=== PATIENT | female | born 1945 | race Caucasian/White ===

== ENCOUNTER → 2016-11-04 | Outpatient (CLI) | payer MEDICARE, BC | END | disposition home or self-care (01) | LOC: MW.RT 09:07 | PROVIDERS: ATTEND Internal Medicine | DX: I49.1 Atrial premature depolarization (principal) ==

== ENCOUNTER → 2016-11-10 | Outpatient (CLI) | payer MEDICARE, BC | LOC: MW.CHIM 08:00 | PROVIDERS: ATTEND Internal Medicine | DX: I49.3 Ventricular premature depolarization (principal); I49.1 Atrial premature depolarization | CPT/HCPCS: G0463 ==

== ENCOUNTER → 2016-11-22 | Outpatient (CLI) | payer MEDICARE, BC | LOC: MW.CHORTHO 08:00 | PROVIDERS: ATTEND Physician Assistant | DX: M17.12 Unilateral primary osteoarthritis, left knee (principal) | CPT/HCPCS: G0463 ==

== ENCOUNTER 2017-12-14 09:00 | Day surgery (SDC) | payer MEDICARE, BC ==
[~2017-12-14 09:00] MED LIST: Sodium Chloride 0.9% 10 ML Syringe FLUSH PRN; Sodium Chloride 0.9% 2.5 ML Syringe FLUSH PRN; ceFAZolin 2 GM in Premix Bag 1 BAG IV ONE
[2017-12-14] MEDS ORDERED: Scopolamine 1.5 MG Transdermal Patch TRDERM PRN (09:29)
--- NOTE | 2017-12-14 09:31 | PCM.PREANE ---
Preanesthetic Assessment - Anesthesia/Transfusion/Family Hx Anesthesia History: Prior Anesthesia Reaction Type of Anesthesia Reaction: Excessive Nausea/Vomiting Family History of Anesthesia Reaction: No Transfusion History: No Prior Transfusion(s) - Review of Systems General: No Symptoms Pulmonary: No Symptoms Cardiovascular: No Symptoms Gastrointestinal: No Symptoms Neurological: No Symptoms Other: Reports: None - Physical Assessment NPO Status Date: 12/13/17 Height: 1.7 m Weight: 87.997 kg ASA Class: 2 Mental Status: Alert & Oriented x3 Airway Class: Mallampati = 1 Dentition: Reports: Normal Dentition Lungs: Clear to Auscultation, Normal Respiratory Effort Cardiovascular: Regular Rate, Regular Rhythm - Lab Values: Laboratory Last Values WBC 5.14 K/uL (4.0-11.0) 12/13/17 10:17 RBC 4.69 M/uL (4.30-5.90) 12/13/17 10:17 Hgb 13.7 g/dL (12.0-16.0) 12/13/17 10:17 Hct 41.6 % (36.0-46.0) 12/13/17 10:17 MCV 88.7 fL (80.0-98.0) 12/13/17 10:17 MCH 29.2 pg (27.0-32.0) 12/13/17 10:17 MCHC 32.9 g/dL (31.0-37.0) 12/13/17 10:17 RDW Std Deviation 43.3 fl (28.0-62.0) 12/13/17 10:17 RDW Coeff of Riddhi 13 % (11.0-15.0) 12/13/17 10:17 Plt Count 290 K/uL (150-400) 12/13/17 10:17 MPV 9.20 fL (7.40-12.00) 12/13/17 10:17 Nucleated RBC % 0.0 /100WBC 12/13/17 10:17 Nucleated RBCs # 0 K/uL 12/13/17 10:17 HCG, Qual NEGATIVE (NEG) 12/13/17 10:17 Blood Type O POSITIVE 12/13/17 10:17 Antibody Screen NEGATIVE 12/13/17 10:17 - Allergies Allergies/Adverse Reactions: Allergies Allergy/AdvReac Type Severity Reaction Status Date / Time No Known Allergies Allergy Verified 12/11/17 08:48 - Anesthesia Plan Pre-Op Medication Ordered: Other (scop) - Acknowledgements Anesthesia Type Planned: General Anesthesia Pt an Appropriate Candidate for the Planned Anesthesia: Yes Alternatives and Risks of Anesthesia Discussed w Pt/Guardian: Yes Pt/Guardian Understands and Agrees with Anesthesia Plan: Yes Additional Comments: PMH: anx/dep, PVCs, GERD. thyroid replacement. mild MR. PreAnesthesia Questionnaire HEENT History: Reports: Other (See Below) Other HEENT History: wears glasses Cardiovascular History: Reports: Heart Murmur Other Cardiovascular History: "leaky valve" Genitourinary History: Reports: Other (See Below) Other Genitourinary History: cystocele ACOUSTICAL ENGINEER History: Reports: Musculoskeletal History: Reports: None Neurological History: Reports: Migraines Other Neuro History: migraines in the past Psychiatric History: Reports: Anxiety Endocrine/Metabolic History: Reports: Hypothyroidism - Past Surgical History Head Surgeries/Procedures: Reports: None HEENT Surgical History: Reports: Tonsillectomy Female Surgical History: Reports: Breast Biopsy, Hysterectomy, Tubal Ligation - SUBSTANCE USE Smoking Status *Q: Never Smoker Recreational Drug Use History: No - HOME MEDS Home Medications: Home Meds Aspirin [[place] Aspirin] 81 mg PO DAILY 12/11/17 [History] Calcium Carb & Citrate/Vit D3 [Calcium + D3 ER Tablet] 1 tab PO DAILY 12/11/17 [ History] Estradiol [Estrace 0.01% Vaginal Crm] 0.5 applicful VAG ASDIRECTED 12/11/17 [ History] Glucosamine/D3/Boswellia Jody [Osteo Bi-Flex Caplet] 2 tab PO DAILY 12/11/17 [ History] LORazepam 0.5 - 1 tab PO ASDIRECTED PRN 12/11/17 [History] Levothyroxine Sodium [Synthroid] 75 mcg PO DAILY 12/11/17 [History] Metoprolol Succinate 25 mg PO BEDTIME 12/11/17 [History] Triamcinolone Acetonide [Nasacort] 1 spray NASBOTH ASDIRECTED PRN 12/11/17 [ History] traZODone HCl [Trazodone HCl] 50 mg PO BEDTIME PRN 12/11/17 [History] - CURRENT (IN HOUSE) MEDS Current Meds: Current Medications Scopolamine (Transderm-Scop) 1.5 mg TRDERM Q72H PRN PRN Reason: Nausea/Vomiting Sodium Chloride (Saline Flush) 10 ml FLUSH ASDIRECTED PRN PRN Reason: Keep Vein Open Sodium Chloride (Saline Flush) 2.5 ml FLUSH ASDIRECTED PRN PRN Reason: Keep Vein Open Discontinued Medications Cefazolin Sodium/Dextrose 2 gm (/ Premix) 50 mls @ 100 mls/hr IV ONETIME ONE Stop: 12/13/17 08:56
[2017-12-14] MEDS ORDERED: Scopolamine 1.5 MG Transdermal Patch ONE (09:56)
[2017-12-14] MEDS ORDERED: Ondansetron 4 MG/2 ML SDV ONE (10:00)
[2017-12-14] MEDS ORDERED: Lidocaine 2% 5 ML SDV ONE (10:00)
[2017-12-14] MEDS ORDERED: Midazolam 1 MG/ML 2 ML SDV ONE (10:01)
[2017-12-14] MEDS ORDERED: Propofol 200 MG/20 ML SDV ONE (10:01)
[2017-12-14] MEDS ORDERED: fentaNYL 250 MCG/5 ML SDV ONE (10:01)
[2017-12-14] MEDS ORDERED: Rocuronium 10 MG/ML 10 ML Syringe ONE (12:43)
[2017-12-14] MEDS ORDERED: ceFAZolin 1 GM Vial ONE (12:52)
[2017-12-14] MEDS ORDERED: fentaNYL 100 MCG/2 ML SDV IVPUSH PRN (13:03)
[2017-12-14] MEDS ORDERED: Fluorescein 5 ML Vial ONE (13:25)
[2017-12-14] MEDS ORDERED: Ketorolac 30 MG/ML SDV IVPUSH PRN (13:47)
[2017-12-14] MEDS ORDERED: Acetaminophen/oxyCODONE 325-5 MG Tab PO PRN ×2 (13:47)
[2017-12-14] MEDS ORDERED: Ketorolac 30 MG/ML SDV IVPUSH ONE (13:47)
[2017-12-14] MEDS ORDERED: Morphine 4 MG/ML Syringe IVPUSH PRN (13:47)
[2017-12-14] MEDS ORDERED: Ondansetron 4 MG/2 ML SDV IVPUSH PRN (13:47)
[2017-12-14] MEDS ORDERED: Promethazine 25 MG/ML SDV IM PRN (13:47)
--- NOTE | 2017-12-14 13:52 | PCM.OPNOTE ---
- General Post-Op/Procedure Note Date of Surgery/Procedure: 12/14/17 Operative Procedure(s): Anterior repair Pre Op Diagnosis: Cystocell, ANILA Post-Op Diagnosis: Same Anesthesia Technique: General ET Tube Primary Surgeon: Migue Oliveira Hot Molder: Alyssa Granados EBL in mLs: 150 Complications: None Condition: Good
--- NOTE | 2017-12-14 14:33 | PCM.POSTAN ---
POST ANESTHESIA ASSESSMENT - MENTAL STATUS Mental Status: Alert, Oriented - RESPIRATORY Respiratory Status: Respiratory Rate WNL, Airway Patent, O2 Saturation Stable - CARDIOVASCULAR CV Status: Pulse Rate WNL, Blood Pressure Stable - GASTROINTESTINAL GI Status: No Symptoms - POST OP HYDRATION Hydration Status: Adequate & Stable
--- NOTE | 2017-12-14 21:35 | OR ---
SURGEON: Migue Oliveira MD DATE OF PROCEDURE: 12/14/2017 PREOPERATIVE DIAGNOSES: Pelvic relaxation, stress urinary incontinence, mainly cystocele. POSTOPERATIVE DIAGNOSES: Pelvic relaxation, stress urinary incontinence, mainly cystocele. OPERATION PERFORMED: Cystocele repair with Carolyne plication and Solyx TVT for stress urinary incontinence and cystoscopy. MANAGER MACHINE: PAUL Cloud. ANESTHESIA: General endotracheal intubation Mr. Monte and Dr. Rico. ESTIMATED BLOOD LOSS: 125 to 250 mL. COMPLICATIONS: None. PROCEDURE IN DETAIL: The patient was brought to the OR, properly identified, and after adequate level of general anesthesia, the patient was placed in lithotomy position, prepped and draped in sterile fashion as usual. Examination under anesthesia revealed that the patient mainly have cystocele problem. Her rectocele and her enterocele are rather not factor in her problems, so we concentrating on repairing her cystocele and her TVT. The operation was started by injecting the anterior vaginal wall with copious amount of normal saline and then opened it from the vaginal wall to the urethra and dissected laterally on both side until the endopelvic fascia could be identified from both sides. Then, the defect was reduced and repaired by approximating the endopelvic fascia on both sides with 3- 0 Vicryl in imbricating fashion closing the defect. Once this was done, excess amount of vaginal mucosa trimmed anteriorly, and then the vaginal cuff was closed anteriorly with 2-0 Vicryl continuous interlocking for hemostasis. Then, attention paid to the part of the anterior vaginal wall beneath the urethra and that was infiltrated with copious amount of normal saline and then opened in midline and dissected laterally in a tunneling fashion to make a tunnel for the Solyx TVT. Once this was done, then the Solyx TVT was placed in place with due amount of tension to elevate the urethrovesical angle, and then we proceeded to close the vaginal cuff with 2-0 Vicryl continuous interlocking for hemostasis. While we were doing that, we asked Anesthesia personnel to give the patient fluorescein and then cystoscopy was done. The bladder was intact. Both ureteric orifices were seen with the dye coming from both of them. Thus, the patency of both ureters verified. Satisfied with this procedure. Vaginal packing was placed in the vagina and Acevedo catheter was placed in the bladder for drainage. The patient tolerated the procedure well and went to recovery room in stable general condition. GORGE DOMINGO /[id number]
--- NOTE | 2017-12-14 22:07 | PCM48HPAN ---
Post Anesthesia Note - EVALUATION WITHIN 48HRS OF ANESTHETIC Vital Signs in Normal Range: Yes Patient Participated in Evaluation: Yes Respiratory Function Stable: Yes Airway Patent: Yes Cardiovascular Function Stable: Yes Hydration Status Stable: Yes Pain Control Satisfactory: Yes Nausea and Vomiting Control Satisfactory: Yes Mental Status Recovered: Yes Resp Rate: 19
--- NOTE | 2017-12-15 10:00 | PCM.SURGPN ---
- General Info POD#: 1 Functional Status: Reports: Pain Controlled - Review of Systems General: Reports: No Symptoms HEENT: Reports: No Symptoms Pulmonary: Reports: No Symptoms Cardiovascular: Reports: No Symptoms Gastrointestinal: Reports: No Symptoms Genitourinary: Reports: No Symptoms Musculoskeletal: Reports: No Symptoms Skin: Reports: No Symptoms Neurological: Reports: No Symptoms Psychiatric: Reports: No Symptoms - Patient Data Vitals - Most Recent: Last Vital Signs Temp 36.9 C 12/15/17 08:00 Pulse 64 12/15/17 08:00 Resp 16 12/15/17 08:00 BP 110/68 12/15/17 08:00 Pulse Ox 93 L 12/15/17 08:00 Weight - Most Recent: 87.9 kg I&O - Last 24 Hours: Intake & Output 12/14/17 12/15/17 12/15/17 22:59 06:59 14:59 Intake Total 100 1272 Output Total 150 2550 Balance -50 -1278 Lab Results Last 24 Hrs: Laboratory Results - last 24 hr 12/15/17 12/15/17 Range/Units 05:30 05:30 WBC 8.51 (4.0-11.0) K/uL RBC 4.14 L (4.30-5.90) M/uL Hgb 11.9 L (12.0-16.0) g/dL Hct 36.8 (36.0-46.0) % MCV 88.9 (80.0-98.0) fL MCH 28.7 (27.0-32.0) pg MCHC 32.3 (31.0-37.0) g/dL RDW Std Deviation 42.8 (28.0-62.0) fl RDW Coeff of Riddhi 13 (11.0-15.0) % Plt Count 228 (150-400) K/uL MPV 9.00 (7.40-12.00) fL Neut % (Auto) 75.2 (48.0-80.0) % Lymph % (Auto) 17.3 (16.0-40.0) % [place] % (Auto) 6.7 (0.0-15.0) % Eos % (Auto) 0.6 (0.0-7.0) % Baso % (Auto) 0.2 (0.0-1.5) % Neut # (Auto) 6.4 H (1.4-5.7) K/uL Lymph # (Auto) 1.5 (0.6-2.4) K/uL [place] # (Auto) 0.6 (0.0-0.8) K/uL Eos # (Auto) 0.1 (0.0-0.7) K/uL Baso # (Auto) 0.0 (0.0-0.1) K/uL Nucleated RBC % 0.0 /100WBC Nucleated RBCs # 0 K/uL Sodium 143 (136-145) mmol/L Potassium 4.2 (3.5-5.1) mmol/L Chloride 110 H (98-107) mmol/L Carbon Dioxide 26.6 (21.0-32.0) mmol/L BUN 15 (7.0-18.0) mg/dL Creatinine 1.0 (0.6-1.0) mg/dL Est Cr Clr Drug Dosing 56.61 mL/min Estimated GFR (MDRD) 54.8 ml/min Glucose 109 H (74-106) mg/dL Calcium 8.5 (8.5-10.1) mg/dL Med Orders - Current: Current Medications Fentanyl (Sublimaze) 50 mcg IVPUSH .Q5MIN PRN PRN Reason: Pain Ketorolac Tromethamine (Toradol) 30 mg IVPUSH Q6H PRN PRN Reason: Pain (severe 7-10) Stop: 12/19/17 13:48 Last Admin: 12/14/17 14:09 Dose: 30 mg Morphine Sulfate (Morphine) 4 mg IVPUSH Q2H PRN PRN Reason: Pain (severe 7-10) Ondansetron HCl (Zofran) 4 mg IVPUSH Q6H PRN PRN Reason: Nausea/Vomiting Oxycodone/Acetaminophen (Percocet 325-5 Mg) 1 tab PO Q4H PRN PRN Reason: Pain (moderate 4-6) Last Admin: 12/15/17 03:30 Dose: 1 tab Oxycodone/Acetaminophen (Percocet 325-5 Mg) 2 tab PO Q4H PRN PRN Reason: Pain (moderate 4-6) Promethazine HCl (Phenergan) 25 mg IM Q6H PRN PRN Reason: Nausea/Vomiting Scopolamine (Transderm-Scop) 1.5 mg TRDERM Q72H PRN PRN Reason: Nausea/Vomiting Last Admin: 12/14/17 10:04 Dose: 1.5 mg Sodium Chloride (Saline Flush) 10 ml FLUSH ASDIRECTED PRN PRN Reason: Keep Vein Open Sodium Chloride (Saline Flush) 2.5 ml FLUSH ASDIRECTED PRN PRN Reason: Keep Vein Open Discontinued Medications Cefazolin Sodium (Ancef) Confirm Administered Dose 2 gm .ROUTE .STK-MED ONE Stop: 12/14/17 12:53 Fentanyl (Sublimaze) Confirm Administered Dose 250 mcg .ROUTE .STK-MED ONE Stop: 12/14/17 10:02 Fluorescein Sodium (Ak-Fluor) Confirm Administered Dose 5 ml .ROUTE .STK-MED ONE Stop: 12/14/17 13:26 Cefazolin Sodium/Dextrose 2 gm (/ Premix) 50 mls @ 100 mls/hr IV ONETIME ONE Stop: 12/13/17 08:56 Last Admin: 12/14/17 18:43 Dose: Not Given Ketorolac Tromethamine (Toradol) 30 mg IVPUSH ONETIME ONE Stop: 12/14/17 13:48 Last Admin: 12/14/17 18:43 Dose: Not Given Lidocaine (Xylocaine-Mpf 2%) Confirm Administered Dose 5 ml .ROUTE .STK-MED ONE Stop: 12/14/17 10:01 Midazolam HCl (Versed 1 Mg/Ml) Confirm Administered Dose 2 mg .ROUTE .STK-MED ONE Stop: 12/14/17 10:02 Ondansetron HCl (Zofran) Confirm Administered Dose 4 mg .ROUTE .STK-MED ONE Stop: 12/14/17 10:01 Propofol (Diprivan 20 Ml) Confirm Administered Dose 200 mg .ROUTE .STK-MED ONE Stop: 12/14/17 10:02 Rocuronium [place] (Zemuron) Confirm Administered Dose 100 mg .ROUTE .STK-MED ONE Stop: 12/14/17 12:44 Scopolamine (Transderm-Scop) Confirm Administered Dose 1.5 mg .ROUTE .STK-MED ONE Stop: 12/14/17 09:57 - Exam Wound/Incisions: Healing Well General: Alert, Oriented HEENT: Pupils Equal Neck: Supple Lungs: Clear to Auscultation, Normal Respiratory Effort Cardiovascular: Regular Rate, Regular Rhythm GI/Abdominal Exam: Normal Bowel Sounds, Soft, Non-Tender, No Organomegaly, No Distention, No Abnormal Bruit, No Mass, Pelvis Stable Extremities: Normal Inspection, Normal Range of Motion, Non-Tender, No Pedal Edema, Normal Capillary Refill Skin: Warm, Dry, Intact Neurological: No New Focal Deficit Psy/Mental Status: Alert, Normal Affect, Normal Mood - Problem List Review Problem List Initiated/Reviewed/Updated: Yes - My Orders Last 24 Hours: Active Orders 24 hr Category Date Time Status Patient Status [ADT] Routine ADT 12/14/17 13:48 Active Notify Provider Vital Signs [RC] ASDIRECTED Care 12/14/17 13:48 Active Oxygen Therapy [RC] ASDIRECTED Care 12/14/17 13:48 Active RT Incentive Spirometry [RC] Q2HWA Care 12/14/17 13:48 Active Up With Assistance [RC] PER UNIT ROUTINE Care 12/14/17 13:48 Active Up ad [place] [RC] PER UNIT ROUTINE Care 12/14/17 13:48 Active Urinary Catheter Removal [RC] Per Unit Routine Care 12/14/17 13:48 Active Vital Signs [RC] Q4H Care 12/14/17 13:48 Active Regular Diet [DIET] Diet 12/14/17 Dinner Active Acetaminophen/oxyCODONE [Percocet 325-5 MG] Med 12/14/17 13:47 Active 1 tab PO Q4H PRN Acetaminophen/oxyCODONE [Percocet 325-5 MG] Med 12/14/17 13:47 Active 2 tab PO Q4H PRN Ketorolac [Toradol] Med 12/14/17 13:47 Active 30 mg IVPUSH Q6H PRN Morphine Med 12/14/17 13:47 Active 4 mg IVPUSH Q2H PRN Ondansetron [Zofran] Med 12/14/17 13:47 Active 4 mg IVPUSH Q6H PRN Promethazine [Phenergan] Med 12/14/17 13:47 Active 25 mg IM Q6H PRN Scopolamine [Transderm-Scop] Med 12/14/17 09:29 Active 1.5 mg TRDERM Q72H PRN fentaNYL [Sublimaze] Med 12/14/17 13:03 Active 50 mcg IVPUSH .Q5MIN PRN Peripheral IV Discontinue [OM.PC] Routine Oth 12/14/17 13:48 Ordered Sequential Compression Device [OM.PC] Per Unit Routine Oth 12/14/17 13:48 Ordered Resuscitation Status Routine Resus Stat 12/14/17 13:47 Ordered Medication Orders Fentanyl (Sublimaze) 50 mcg IVPUSH .Q5MIN PRN PRN Reason: Pain Ketorolac Tromethamine (Toradol) 30 mg IVPUSH Q6H PRN PRN Reason: Pain (severe 7-10) Stop: 12/19/17 13:48 Last Admin: 12/14/17 14:09 Dose: 30 mg Morphine Sulfate (Morphine) 4 mg IVPUSH Q2H PRN PRN Reason: Pain (severe 7-10) Ondansetron HCl (Zofran) 4 mg IVPUSH Q6H PRN PRN Reason: Nausea/Vomiting Oxycodone/Acetaminophen (Percocet 325-5 Mg) 1 tab PO Q4H PRN PRN Reason: Pain (moderate 4-6) Last Admin: 12/15/17 03:30 Dose: 1 tab Oxycodone/Acetaminophen (Percocet 325-5 Mg) 2 tab PO Q4H PRN PRN Reason: Pain (moderate 4-6) Promethazine HCl (Phenergan) 25 mg IM Q6H PRN PRN Reason: Nausea/Vomiting Scopolamine (Transderm-Scop) 1.5 mg TRDERM Q72H PRN PRN Reason: Nausea/Vomiting Last Admin: 12/14/17 10:04 Dose: 1.5 mg Sodium Chloride (Saline Flush) 10 ml FLUSH ASDIRECTED PRN PRN Reason: Keep Vein Open Sodium Chloride (Saline Flush) 2.5 ml FLUSH ASDIRECTED PRN PRN Reason: Keep Vein Open - Assessment Assessment (Free Text/Narrative):: Doing well. vaginal pack and foly catheter removed. - Plan Plan (Free Text/Narrative):: Send home today.
== END 2017-12-15 13:18 | disposition home or self-care (01) ==
LOC: MW.SDS 09:00 → MW.MS 13:48 → MW.SDS 12-15 13:18
PROVIDERS: ATTEND Obstetrics & Gynecology
DX: N39.3 Stress incontinence (female) (male) (principal); N81.10 Cystocele, unspecified; F41.9 Anxiety disorder, unspecified; G43.909 Migraine, unspecified, not intractable, without status migrainosus; E03.9 Hypothyroidism, unspecified; Z79.82 Long term (current) use of aspirin; Z79.899 Other long term (current) drug therapy; Z90.89 Acquired absence of other organs; Z90.710 Acquired absence of both cervix and uterus; Z98.51 Tubal ligation status
CPT/HCPCS: 36415; 57240; 57288; 80048; 84703; 85025; 85027; 86850; 86900; 86901; A9270; J0690; J1885; J2250; J2405; J3010; J2704

== ENCOUNTER 2020-12-31 14:19 | Inpatient (IN) | payer MEDICARE, BC ==
[2020-12-31] MEDS ORDERED: Sodium Chloride 0.9% 1,000 ML IV ONE (14:50)
--- NOTE | 2020-12-31 15:36 | PCM.EKG ---
#1 Interpretation EKG Date: 12/31/20 Time: 15:28 Rhythm: NSR Rate (Beats/Min): 79 [place]: Normal P-Wave: Present QRS: Normal ST-T: Normal QT: Normal Comparison: No Change (10/25/16) EKG Interpretation Comments: SinuS Rhythm
--- NOTE | 2020-12-31 15:40 | CR ---
Indication: Shortness of breath Technique: Chest 1 view Comparison: December 28, 2020 Findings/Impression: Stable cardiomediastinal silhouette. New, mild pulmonary venous congestion with some new patchy infiltrates in the right mid to lower lung field, concerning for atelectasis or infection. No pneumothorax or effusion. Mild elevation of the left hemidiaphragm. Mild dextroscoliosis of the spine with age-related degenerative changes. Dictated by Sridevi Zarate MD @ 12/31/2020 3:39:[address] Sridevi Zarate @ Dec 31 2020 3:39PM
[2020-12-31 15:47] LABS: BLOOD UREA NITROGEN,BUN 16 mg/dL (7.0-18.0); CARBON DIOXIDE,CO2 26.1 mmol/L (21.0-32.0); CHLORIDE,CL 96 mmol/L (98-107); GLUCOSE RANDOM 119 mg/dL (74-106); LIPASE 97 U/L (73-393); POTASSIUM,K 3.8 mmol/L (3.5-5.1); SODIUM,NA 133 mmol/L (136-145)
[2020-12-31 16:02] LABS: CORONAVIRUS COVID-19 NAA POSITIVE (NEGATIVE); INFLUENZA A NAA NEGATIVE (NEGATIVE); INFLUENZA B NAA NEGATIVE (NEGATIVE)
[2020-12-31] MEDS ORDERED: Dexamethasone 10 MG/ML SDV IVPUSH ONE (17:00)
[2020-12-31] MEDS ORDERED: Acetaminophen 325 MG Tab PO PRN (17:37)
[2020-12-31] MEDS ORDERED: REMDESIVIR 200 MG in Sodium Chloride 0.9% 250 ML IV ONE (17:51)
--- NOTE | 2020-12-31 18:11 | EDM.PDOC ---
ED HPI GENERAL MEDICAL PROBLEM - General Chief Complaint: General Stated Complaint: DOESNNT FEEL WELL Time Seen by Provider: 12/31/20 14:20 Source of Information: Reports: Patient History Limitations: Reports: No Limitations - History of Present Illness INITIAL COMMENTS - FREE TEXT/NARRATIVE: HISTORY AND PHYSICAL: History of present illness: Patient is a 75-year-old female, with a history of hyper lipidemia and hypothyroidism, who presents emergency room today with concern of shortness of breath and feeling tired and rundown. Patient states she is also had a recent "cold "and has had a cough, runny/stuffy nose, and generalized body aches. Patient states that she is also had fevers off and on around 101 at home. Patient states that everyone in the family has "had a cold ". Patient states that she has not received the COVID-19 vaccination. Patient states that she has had symptoms for 1 week and she saw her primary care provider 3 days ago who did a chest x-ray and some routine lab work but states that she did not have a COVID-19 test at that time. Patient states that she went to see them today in the clinic and was instructed to come to the emergency room because her oxygen was low. Patient states that her oxygen was 86% today in the clinic. Patient denies any other symptoms or concerns. Patient denies chest pain. Denies headache, neck stiff ness, change in vision, syncope, or near syncope. Denies nausea, vomiting, abdominal pain, diarrhea, constipation, or dysuria. Has not noted any blood in urine or stool. Patient has been eating and drinking appropriately. Review of systems: As per history of present illness and below otherwise all systems reviewed and negative. Past medical history: As per history of present illness and as reviewed below otherwise noncontributory. Surgical history: As per history of present illness and as reviewed below otherwise noncontributory. Social history: See social history for further information Family history: As per history of present illness and as reviewed below otherwise noncontributory. Physical exam: General: Patient is alert, oriented, and in no acute distress. Patient sitting comfortably on exam table. O2 90% on RA. Placed on 2L NC and 94%, otherwise vitals stable and reviewed by me. HEENT: Atraumatic, normocephalic, pupils equal and reactive bilaterally, negative for conjunctival pallor or scleral icterus, mucous membranes moist, TMs normal bilaterally, throat clear, neck supple, nontender, trachea midline. No drooling or trismus noted. No meningeal signs. No hot potato voice noted. Lungs: Patient speaking clearly without breathlessness, no wheezing or stridor, no accessory muscle use or respiratory distress. Auscultation deferred due to current COV-ID 19 outbreak. Heart: Auscultation deferred due to current COV-ID 19 outbreak. Abdomen: Soft, nondistended, nontender. Negative for masses or hepatosplenomegaly. Negative for costovertebral tenderness. Pelvis: Stable nontender. Genitourinary: Deferred. Rectal: Deferred. Skin: Intact, warm, dry. No lesions or rashes noted. Extremities: Atraumatic, negative for cords or calf pain. Neurovascular unremarkable. Neuro: Awake, alert, oriented. Cranial nerves II through XII unremarkable. Cerebellum unremarkable. Motor and sensory unremarkable throughout. Exam nonfocal. Notes: Patient is a 75-year-old female with a health history of hyperlipidemia and hypothyroidism, who presents emergency room today secondary to worsening shortness of breath with viral illness symptoms over the past several days with hypoxia as determined by the clinic and sent to the emergency room for further evaluation. Upon arrival to the ED, patient's oxygen on room air is 90% and otherwise vitally stable. Patient is breathing comfortably without breathlessness, and no sign of respiratory distress. Will perform cardiac evaluation. Patient was placed on 2 L nasal cannula upon arrival to the ED and satting approximately 94% and breathing comfortably. While waiting for diagnostic completion, patient does get up to use the restroom. During this event, she does drop down to 80% on 2 L. When patient does sit back down, she remains consistently 85 to 86% on 2 L nasal cannula. Patient was increased to 4 L nasal cannula and now 93%. She remains comfortable despite this drop in oxygenation and breathing without difficulty. See Dr. Bradford's dictation for specific EKG interpretation. However, no STEMI or acute signs of ischemia with normal sinus rhythm. CBC mild derangements unremarkable. CMP shows a mildly low sodium at 133, chloride 96, mildly elevated glucose at 1-18, otherwise unremarkable. Troponin is negative. Patient unable to leave a urine sample at this time. Covid is positive. Chest x-ray shows stable cardiomediastinal silhouette. New, mild pulmonary venous congestion with some new patchy infiltrates in the right mid to lower lung field. Concerning for atelectasis or infection. No pneumothorax or effus ion. Mild elevation of the left hemidiaphragm. Mild dextroscoliosis of the spine with age-related degenerative changes. Upon reevaluation of patient, she remains comfortable on 4 L nasal cannula sa tting approximately 93 to 94% and otherwise breathing comfortably. She remains vitally stable. I did call and speak to the hospitalist on-call, Dr. Angulo, and thoroughly discussed patient's case. Will admit to inpatient on telemetry Voices understanding and is agreeable to plan of care. Denies any further questions or concerns at this time. Diagnostics: EKG, CBC, CMP, UA, chest x-ray, troponin, Covid/influenza Therapeutics: Oxygen, Decadron, NS Impression: COVID-19 infection with hypoxia Plan: Admit to observation to Dr. Angulo on telemetry Definitive disposition and diagnosis as appropriate pending reevaluation and review of above. - Related Data Allergies Allergy/AdvReac Type Severity Reaction Status Date / Time No Known Allergies Allergy Verified 12/31/20 18:19 Home Meds: Home Meds Aspirin [[place] Aspirin EC] 81 mg PO DAILY 12/11/17 [History] LORazepam 0.5 - 1 tab PO ASDIRECTED PRN 12/11/17 [History] Metoprolol Succinate 25 mg PO BEDTIME 12/11/17 [History] Cholecalciferol (Vitamin D3) [Vitamin D3] 2,000 unit PO DAILY 12/31/20 [History] Levothyroxine [Synthroid] 100 mcg PO ACBREAKFAST 12/31/20 [History] Lysine 1,000 mg PO DAILY 12/31/20 [History] Magnesium 250 mg PO DAILY 12/31/20 [History] Zinc 50 mg PO DAILY 12/31/20 [History] Past Medical History HEENT History: Reports: Other (See Below) Other HEENT History: wears glasses Cardiovascular History: Reports: Heart Murmur, Hypertension Other Cardiovascular History: "leaky valve" Genitourinary History: Reports: Other (See Below) Other Genitourinary History: cystocele [employer] History: Reports: Musculoskeletal History: Reports: None Neurological History: Reports: Migraines Other Neuro History: migraines in the past Psychiatric History: Reports: Anxiety Endocrine/Metabolic History: Reports: Hypothyroidism - Past Surgical History Head Surgeries/Procedures: Reports: None HEENT Surgical History: Reports: Tonsillectomy Female Surgical History: Reports: Breast Biopsy, Hysterectomy, Tubal Ligation Social & Family History - Family History Family Medical History: No Pertinent Family History - Tobacco Use Tobacco Use Status *Q: Never Tobacco User - Caffeine Use Caffeine Use: Reports: Coffee - Recreational Drug Use Recreational Drug Use: No ED ROS GENERAL - Review of Systems Review Of Systems: Comprehensive ROS is negative, except as noted in HPI. ED EXAM, GENERAL - Physical Exam Exam: See Below (see dictation) Course - Vital Signs Last Recorded V/S: Last Vital Signs Temp 96.9 F 01/02/21 11:51 Pulse 76 01/02/21 11:51 Resp 18 01/02/21 11:51 BP 102/56 L 01/02/21 11:51 Pulse Ox 94 L 01/02/21 11:51 - Orders/Labs/Meds Orders: Medication Orders Acetaminophen (Acetaminophen 325 Mg Tab) 650 mg PO Q4H PRN PRN Reason: Pain (Mild 1-3)/fever Albuterol/Ipratropium (Albuterol/Ipratropium 4 Gm Inhalation [place]) 0 gm INH Q4H PRN PRN Reason: Dyspnea Aspirin (Aspirin 81 Mg Tab.Ec) 81 mg PO DAILY [facility] Last Admin: 01/02/21 08:56 Dose: 81 mg Documented by: Admin: 01/01/21 08:05 Dose: 81 mg Documented by: ASHLEY Cholecalciferol (Cholecalciferol (Vitamin D3) 25 Mcg Tab) 50 mcg PO DAILY [facility] Last Admin: 01/02/21 08:56 Dose: 50 mcg Documented by: Admin: 01/01/21 08:04 Dose: 50 mcg Documented by: ASHLEY Dexamethasone (Dexamethasone 4 Mg Tab) 6 mg PO DAILY [facility] Last Admin: 01/02/21 08:56 Dose: 6 mg Documented by: Admin: 01/01/21 08:04 Dose: 6 mg Documented by: ASHLEY Guaifenesin (Guaifenesin 100 Mg/5 Ml Soln 5 Ml Ud Cup) 200 mg PO Q4H PRN PRN Reason: Cough Last Admin: 01/01/21 04:18 Dose: 200 mg Documented by: DARIA Heparin Sodium (Porcine) (Heparin Sodium 5,000 Units/Ml Vial) 5,000 units SUBCUT Q8H [facility] Last Admin: 01/02/21 12:03 Dose: 5,000 units Documented by: Admin: 01/02/21 04:20 Dose: 5,000 units Documented by: Admin: 01/01/21 19:41 Dose: 5,000 units Documented by: Admin: 01/01/21 12:30 Dose: 5,000 units Documented by: Admin: 01/01/21 04:16 Dose: 5,000 units Documented by: Admin: 12/31/20 20:25 Dose: 5,000 units Documented by: DARIA Levofloxacin/Dextrose 750 mg/ (Premix) 150 mls @ 100 mls/hr IV Q24H [facility] Last Admin: 01/01/21 20:23 Dose: 100 mls/hr Documented by: Infusion: 12/31/20 21:58 Dose: 100 mls/hr Documented by: Admin: 12/31/20 20:28 Dose: 100 mls/hr Documented by: DARIA Remdesivir 100 mg/ Sodium (Chloride) 100 mls @ 100 mls/hr IV Q24H [facility] Stop: 01/04/21 19:59 Last Admin: 01/01/21 18:53 Dose: 100 mls/hr Documented by: ASHLEY Levothyroxine Sodium (Levothyroxine 100 Mcg Tab) 100 mcg PO ACBREAKFAST [facility] Last Admin: 01/02/21 06:38 Dose: 100 mcg Documented by: Admin: 01/01/21 06:32 Dose: 100 mcg Documented by: DARIA Lorazepam (Lorazepam 0.5 Mg Tab) 1 mg PO BEDTIME PRN PRN Reason: Anxiety Metoprolol Succinate (Metoprolol Succinate 25 Mg Tab.Er) 25 mg PO BEDTIME [facility] Last Admin: 01/01/21 20:24 Dose: 25 mg Documented by: Admin: 12/31/20 21:39 Dose: 25 mg Documented by: DARIA Ondansetron HCl (Ondansetron 4 Mg Tab.Dis) 4 mg PO Q4H PRN PRN Reason: nausea, able to take PO Zinc [Zinc] 50 Mg (Tablet) 1 each PO DAILY [facility] Last Admin: 01/02/21 08:57 Dose: Not Given Documented by: Admin: 01/01/21 12:11 Dose: Not Given Documented by: ASHLEY Labs: Laboratory Tests 12/31/20 12/31/20 12/31/20 Range/Units 15:08 15:08 15:20 WBC 8.35 (4.0-11.0) K/uL RBC 4.62 (4.30-5.90) M/uL Hgb 13.6 (12.0-16.0) g/dL Hct 40.5 (36.0-46.0) % MCV 87.7 (80.0-98.0) fL MCH 29.4 (27.0-32.0) pg MCHC 33.6 (31.0-37.0) g/dL RDW Std Deviation 44.7 (28.0-62.0) fl RDW Coeff of Riddhi 14 (11.0-15.0) % Plt Count 255 (150-400) K/uL MPV 9.00 (7.40-12.00) fL Neut % (Auto) 83.4 H (48.0-80.0) % Lymph % (Auto) 11.0 L (16.0-40.0) % [place] % (Auto) 5.5 (0.0-15.0) % Eos % (Auto) 0.0 (0.0-7.0) % Baso % (Auto) 0.1 (0.0-1.5) % Neut # (Auto) 7.0 H (1.4-5.7) K/uL Lymph # (Auto) 0.9 (0.6-2.4) K/uL Davison # (Auto) 0.5 (0.0-0.8) K/uL Eos # (Auto) 0.0 (0.0-0.7) K/uL Baso # (Auto) 0.0 (0.0-0.1) K/uL Nucleated RBC % 0.0 /100WBC Nucleated RBCs # 0 K/uL Sodium 133 L (136-145) mmol/L Potassium 3.8 (3.5-5.1) mmol/L Chloride 96 L (98-107) mmol/L Carbon Dioxide 26.1 (21.0-32.0) mmol/L BUN 16 (7.0-18.0) mg/dL Creatinine 1.0 (0.6-1.0) mg/dL Est Cr Clr Drug Dosing 54.18 mL/min Estimated GFR (MDRD) 54.3 ml/min Glucose 119 H (74-106) mg/dL Calcium 8.5 (8.5-10.1) mg/dL Total Bilirubin 0.5 (0.2-1.0) mg/dL AST 35 (15-37) IU/L ALT 22 (14-63) IU/L Alkaline Phosphatase 85 (46-116) U/L Troponin I < 0.050 (0.000-0.056) ng/mL Total Protein 8.2 (6.4-8.2) g/dL Albumin 3.4 (3.4-5.0) g/dL Globulin 4.8 H (2.6-4.0) g/dL Albumin/Globulin Ratio 0.7 L (0.9-1.6) Lipase 97 (73-393) U/L Influenza Type A RNA NEGATIVE (NEGATIVE) Influenza Type B RNA NEGATIVE (NEGATIVE) SARS-CoV-2 RNA (FREYA) POSITIVE H (NEGATIVE) Meds: Medications Generic Name Dose Route Start Last Admin Trade Name Freq PRN Reason Stop Dose Admin Acetaminophen 650 mg 12/31/20 17:37 Acetaminophen 325 Mg Tab PO Q4H PRN Pain (Mild 1-3)/fever Albuterol/Ipratropium 0 gm 12/31/20 20:02 Albuterol/Ipratropium 4 Gm Inhalation [place] INH Q4H PRN Dyspnea Aspirin 81 mg 01/01/21 09:00 01/02/21 08:56 Aspirin 81 Mg Tab.Ec PO 81 mg DAILY [facility] Administration Cholecalciferol 50 mcg 01/01/21 09:00 01/02/21 08:56 Cholecalciferol (Vitamin D3) 25 Mcg Tab PO 50 mcg DAILY [facility] Administration Dexamethasone 6 mg 01/01/21 09:00 01/02/21 08:56 Dexamethasone 4 Mg Tab PO 6 mg DAILY [facility] Administration Guaifenesin 200 mg 12/31/20 21:43 01/01/21 04:18 Guaifenesin 100 Mg/5 Ml Soln 5 Ml Ud Cup PO 200 mg Q4H PRN Administration Cough Heparin Sodium (Porcine) 5,000 units 12/31/20 20:00 01/02/21 12:03 Heparin Sodium 5,000 Units/Ml Vial SUBCUT 5,000 units Q8H [facility] Administration Levofloxacin/Dextrose 750 mg/ 150 mls @ 100 mls/hr 12/31/20 20:00 01/01/21 20:23 Premix IV 100 mls/hr Q24H [facility] Administration Remdesivir 100 mg/ Sodium 100 mls @ 100 mls/hr 01/01/21 19:00 01/01/21 18:53 Chloride IV 01/04/21 19:59 100 mls/hr Q24H [facility] Administration Levothyroxine Sodium 100 mcg 01/01/21 07:30 01/02/21 06:38 Levothyroxine 100 Mcg Tab PO 100 mcg ACBREAKFAST [facility] Administration Lorazepam 1 mg 01/02/21 01:35 Lorazepam 0.5 Mg Tab PO BEDTIME PRN Anxiety Metoprolol Succinate 25 mg 12/31/20 21:30 01/01/21 20:24 Metoprolol Succinate 25 Mg Tab.Er PO 25 mg BEDTIME [facility] Administration Ondansetron HCl 4 mg 12/31/20 18:42 Ondansetron 4 Mg Tab.Dis PO Q4H PRN nausea, able to take PO Zinc [Zinc] 50 Mg 1 each 01/01/21 09:00 01/02/21 08:57 Tablet PO Not Given DAILY [facility] Discontinued Medications Generic Name Dose Route Start Last Admin Trade Name Freq PRN Reason Stop Dose Admin Dexamethasone 6 mg 12/31/20 17:00 12/31/20 17:22 Dexamethasone 10 Mg/Ml Sdv IVPUSH 12/31/20 17:01 6 mg ONETIME ONE Administration Sodium Chloride 1,000 mls @ 999 mls/hr 12/31/20 14:50 12/31/20 14:59 Normal Saline IV 12/31/20 15:50 999 mls/hr BOLUS ONE Administration Remdesivir 200 mg/ Sodium 250 mls @ 250 mls/hr 12/31/20 17:51 12/31/20 19:23 Chloride IV 12/31/20 17:52 250 mls/hr ONETIME ONE Administration Remdesivir 100 mg/ Sodium 100 mls @ 100 mls/hr 01/01/21 09:00 Chloride IV 01/04/21 09:59 Q24H [facility] Departure - Departure Time of Disposition: 18:09 Disposition: Admitted As Inpatient 68 Clinical Impression: COVID-19 virus infection, Hypoxia - Discharge Information Sepsis Event Note (ED) - Evaluation Sepsis Screening Result: No Definite Risk
[2020-12-31] MEDS ORDERED: Ondansetron 4 MG Tab.DIS PO PRN (18:42)
--- NOTE | 2020-12-31 18:48 | PCM.HP.2 ---
<Rohith Marina - Last Filed: 12/31/20 20:07> H&P History of Present Illness - General Date of Service: 12/31/20 Admit Problem/Dx: Admission Diagnosis/Problem Admission Diagnosis/Problem Hypoxia Source of Information: Patient History Limitations: Reports: No Limitations - History of Present Illness Initial Comments - Free Text/Narative: Patient is a 75-year-old female with significant past medical history of hypothyroidism,Irregular heart rate with premature atrial contractions on metoprolol, anxiety: Presenting today with worsening shortness of breath, fatigue, exertional dyspnea x6 days. Patient endorses symptoms began 6 days pr ior and had gone to urgent care here at [facility] on December 28 complaining of fatigue and nonproductive cough. Chest x-ray at the time however did not show any acute findings and patient was discharged in stable condition. patient however returned back on December 31; complaining of worsening fatigue w. fever, T-max of 101 and since oxygen saturation was noted to be at 88% patient was immediately sent to the ER. ED course: Covid positive Chest x-ray: New mild pulmonary venous congestion with some new patchy infiltrates in the right mid to lower lung lung field concerning for atelectasis or infection no pneumothorax or effusion noted. EKG: Sinus rhythm Patient was given initial dose of dexamethasone 6 mg, remdesivir 200 and given a 1 L NS bolus. Oxygen requirement had gone up slightly however the rest of her vitals were unremarkable; O2 saturation 90% on 4 L. Bedside: Endorses similar story as above. States that fatigue has been worsening for 6 days and that appetite has been waning as well. Mentions fever has improved but was having shortness of breath with and without exertion. Patient otherwise denies any chest pain, dizziness, palpitations - Related Data Allergies/Adverse Reactions: Allergies Allergy/AdvReac Type Severity Reaction Status Date / Time No Known Allergies Allergy Verified 12/31/20 18:19 Home Medications: Home Meds Aspirin [[place] Aspirin EC] 81 mg PO DAILY 12/11/17 [History] LORazepam 0.5 - 1 tab PO ASDIRECTED PRN 12/11/17 [History] Metoprolol Succinate 25 mg PO BEDTIME 12/11/17 [History] Cholecalciferol (Vitamin D3) [Vitamin D3] 2,000 unit PO DAILY 12/31/20 [History] Levothyroxine [Synthroid] 100 mcg PO ACBREAKFAST 12/31/20 [History] Lysine 1,000 mg PO DAILY 12/31/20 [History] Magnesium 250 mg PO DAILY 12/31/20 [History] Zinc 50 mg PO DAILY 12/31/20 [History] Past Medical History HEENT History: Reports: Other (See Below) Other HEENT History: wears glasses Cardiovascular History: Reports: Heart Murmur, Hypertension Other Cardiovascular History: "leaky valve" Genitourinary History: Reports: Other (See Below) Other Genitourinary History: cystocele 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: Musculoskeletal History: Reports: None Neurological History: Reports: Migraines Other Neuro History: migraines in the past Psychiatric History: Reports: Anxiety Endocrine/Metabolic History: Reports: Hypothyroidism - Past Surgical History Head Surgeries/Procedures: Reports: None HEENT Surgical History: Reports: Tonsillectomy Female Surgical History: Reports: Breast Biopsy, Hysterectomy, Tubal Ligation Social & Family History - Family History Family Medical History: No Pertinent Family History - Tobacco Use Tobacco Use Status *Q: Never Tobacco User Second Hand Smoke Exposure: No - Caffeine Use Caffeine Use: Reports: Coffee Caffeine Use Comment: a little bit - Recreational Drug Use Recreational Drug Use: No H&P Review of Systems - Review of Systems: Review Of Systems: See Below General: Reports: Weakness, Fatigue. Denies: Fever HEENT: Reports: No Symptoms Pulmonary: Reports: Cough. Denies: Shortness of Breath, Pleuritic Chest Pain Cardiovascular: Reports: Dyspnea on Exertion. Denies: Chest Pain, Palpitations Gastrointestinal: Reports: No Symptoms. Denies: Constipation, Diarrhea, Decreased Appetite, Nausea Genitourinary: Reports: No Symptoms Musculoskeletal: Reports: No Symptoms Psychiatric: Reports: No Symptoms Neurological: Reports: No Symptoms Hematologic/Lymphatic: Reports: No Symptoms Exam - Exam Exam: See Below - Vital Signs Vital Signs: Last Vital Signs Temp 98.4 F 12/31/20 18:00 Pulse 86 12/31/20 18:00 Resp 18 12/31/20 18:00 BP 128/69 12/31/20 18:00 Pulse Ox 90 L 12/31/20 18:27 Weight: 82.146 kg - Exam Quality Assessment: Supplemental Oxygen General: Alert, Oriented, Cooperative HEENT: Conjunctiva Clear, EOMI, Mucosa Moist & Kulm Neck: Supple, Trachea Midline Lungs: Other (Coarse BS noted diffusely; no wheezing and or crackles noted ) Cardiovascular: Regular Rate, Regular Rhythm GI/Abdominal Exam: Soft, Non-Tender Extremities: Normal Inspection Neuro Extensive - Mental Status: Alert, Oriented x3 Psychiatric: Alert, Normal Mood - Patient Data Lab Results Last 24 hrs: Laboratory Results - last 24 hr 12/31/20 12/31/20 12/31/20 Range/Units 03:20 15:08 15:08 WBC 8.35 (4.0-11.0) K/uL RBC 4.62 (4.30-5.90) M/uL Hgb 13.6 (12.0-16.0) g/dL Hct 40.5 (36.0-46.0) % MCV 87.7 (80.0-98.0) fL MCH 29.4 (27.0-32.0) pg MCHC 33.6 (31.0-37.0) g/dL RDW Std Deviation 44.7 (28.0-62.0) fl RDW Coeff of Riddhi 14 (11.0-15.0) % Plt Count 255 (150-400) K/uL MPV 9.00 (7.40-12.00) fL Neut % (Auto) 83.4 H (48.0-80.0) % Lymph % (Auto) 11.0 L (16.0-40.0) % [place] % (Auto) 5.5 (0.0-15.0) % Eos % (Auto) 0.0 (0.0-7.0) % Baso % (Auto) 0.1 (0.0-1.5) % Neut # (Auto) 7.0 H (1.4-5.7) K/uL Lymph # (Auto) 0.9 (0.6-2.4) K/uL [place] # (Auto) 0.5 (0.0-0.8) K/uL Eos # (Auto) 0.0 (0.0-0.7) K/uL Baso # (Auto) 0.0 (0.0-0.1) K/uL Nucleated RBC % 0.0 /100WBC Nucleated RBCs # 0 K/uL Sodium 133 L (136-145) mmol/L Potassium 3.8 (3.5-5.1) mmol/L Chloride 96 L (98-107) mmol/L Carbon Dioxide 26.1 (21.0-32.0) mmol/L BUN 16 (7.0-18.0) mg/dL Creatinine 1.0 (0.6-1.0) mg/dL Est Cr Clr Drug Dosing 54.18 mL/min Estimated GFR (MDRD) 54.3 ml/min Glucose 119 H (74-106) mg/dL Calcium 8.5 (8.5-10.1) mg/dL Total Bilirubin 0.5 (0.2-1.0) mg/dL AST 35 (15-37) IU/L ALT 22 (14-63) IU/L Alkaline Phosphatase 85 (46-116) U/L Troponin I < 0.050 (0.000-0.056) ng/mL Total Protein 8.2 (6.4-8.2) g/dL Albumin 3.4 (3.4-5.0) g/dL Globulin 4.8 H (2.6-4.0) g/dL Albumin/Globulin Ratio 0.7 L (0.9-1.6) Lipase 97 (73-393) U/L Influenza Type A RNA NEGATIVE (NEGATIVE) Influenza Type B RNA NEGATIVE (NEGATIVE) SARS-CoV-2 RNA (FREYA) POSITIVE H (NEGATIVE) Result Diagrams: 12/31/20 15:08 12/31/20 18:22 Sepsis Event Note - Evaluation Sepsis Screening Result: No Definite Risk - Focused Exam Vital Signs: Vital Signs Temp Pulse Resp BP BP Pulse Ox Pulse Ox 12/31/20 18:27 90 L 12/31/20 18:00 98.4 F 86 18 128/69 90 L 12/31/20 17:46 91 116/60 96 12/31/20 17:26 87 118/84 92 L 12/31/20 17:06 100 93 L 12/31/20 16:15 90 93 L 12/31/20 15:00 100 90 L 12/31/20 14:47 97 94 L 12/31/20 14:40 99.1 F 98 117/65 91 L - Problem List (1) COVID-19 virus infection SNOMED Code(s): 242914094 ICD Code: U07.1 - COVID-19 Status: Acute Current Visit: Yes (2) Hypoxia SNOMED Code(s): 796664696 ICD Code: R09.02 - HYPOXEMIA Status: Acute Current Visit: Yes Problem List Initiated/Reviewed/Updated: Yes Orders Last 24hrs: Active Orders 24 hr Category Date Time Status Admission Status [Patient Status] [ADT] Stat ADT 12/31/20 17:01 Active Ambulate [RC] ASDIRECTED Care 12/31/20 17:37 Active Antiembolic Devices [RC] PER UNIT ROUTINE Care 12/31/20 17:38 Active Bladder Scan [RC] ASDIRECTED Care 12/31/20 14:51 Active Cardiac Monitoring [RC] . DIRECTED Care 12/31/20 14:50 Active EKG Documentation Completion [RC] STAT Care 12/31/20 14:51 Active Oxygen Therapy [RC] PRN Care 12/31/20 17:37 Active Oxygen Therapy [RC] PRN Care 12/31/20 18:42 Ordered Telemetry Monitoring [Cardiac Monitoring] [RC] . Care 12/31/20 17:25 Active DIRECTED VTE/DVT Education [RC] PER UNIT ROUTINE Care 12/31/20 17:37 Active VTE/DVT Education [RC] PER UNIT ROUTINE Care 12/31/20 18:42 Ordered Vital Signs [RC] Q4H Care 12/31/20 17:37 Active Vital Signs [RC] Q4H Care 12/31/20 18:42 Ordered Heart Healthy Diet [DIET] Diet 12/31/20 Breakfast Active BILIRUBIN DIRECT [CHEM] DAILY Lab 12/31/20 18:22 Received BILIRUBIN DIRECT [CHEM] DAILY Lab 01/01/21 18:00 Ordered BILIRUBIN DIRECT [CHEM] DAILY Lab 01/02/21 18:00 Ordered BILIRUBIN DIRECT [CHEM] DAILY Lab 01/03/21 18:00 Ordered BILIRUBIN DIRECT [CHEM] DAILY Lab 01/04/21 18:00 Ordered COMPREHENSIVE METABOLIC PN,CMP [CHEM] DAILY Lab 12/31/20 18:22 Received COMPREHENSIVE METABOLIC PN,CMP [CHEM] DAILY Lab 01/01/21 18:00 Ordered COMPREHENSIVE METABOLIC PN,CMP [CHEM] DAILY Lab 01/02/21 18:00 Ordered COMPREHENSIVE METABOLIC PN,CMP [CHEM] DAILY Lab 01/03/21 18:00 Ordered COMPREHENSIVE METABOLIC PN,CMP [CHEM] DAILY Lab 01/04/21 18:00 Ordered UA RFX BARBIE AND CULT IF INDIC [URIN] Stat Lab 12/31/20 14:50 Ordered Acetaminophen [TylenoL] Med 12/31/20 17:37 Active 650 mg PO Q4H PRN Heparin Sodium Med 12/31/20 18:45 Ordered 5,000 units SUBCUT Q8H Levofloxacin/Dextrose 5%-Water [Levaquin in D5W 750 MG/ Med 12/31/20 19:00 Ordered 150 ML] 750 mg Premix Bag 1 bag IV Q24H Ondansetron [Zofran ODT] Med 12/31/20 18:42 Ordered 4 mg PO Q4H PRN Remdesivir 100 mg Med 01/01/21 09:00 Active Sodium Chloride 0.9% [Normal Saline] 100 ml IV Q24H dexAMETHasone Med 01/01/21 09:00 Ordered 6 mg PO DAILY Sequential Compression Device [OM.PC] Per Unit Routine Oth 12/31/20 17:38 Ordered Resuscitation Status Routine Resus Stat 12/31/20 18:42 Ordered Medication Orders Acetaminophen (Acetaminophen 325 Mg Tab) 650 mg PO Q4H PRN PRN Reason: Pain (Mild 1-3)/fever Dexamethasone (Dexamethasone 4 Mg Tab) 6 mg PO DAILY [facility] Heparin Sodium (Porcine) (Heparin Sodium 5,000 Units/Ml Vial) 5,000 units SUBCUT Q8H [facility] Remdesivir 100 mg/ Sodium (Chloride) 100 mls @ 100 mls/hr IV Q24H [facility] Stop: 01/04/21 09:59 Levofloxacin/Dextrose 750 mg/ (Premix) 150 mls @ 100 mls/hr IV Q24H [facility] Ondansetron HCl (Ondansetron 4 Mg Tab.Dis) 4 mg PO Q4H PRN PRN Reason: nausea, able to take PO Assessment/Plan Comment:: Assessment: 1. Acute hypoxic respiratory failure secondary to Covid. 2. Hyponatremia/mild 3. Past medical history: Hypothyroidism, hyperlipidemia, anxiety Plan Admit to inpatient. Full code. I's and O's per routine vitals per routine DVT prophylaxis: Heparin 5000 every 8 Telemetry Heart healthy diet 1. Acute hypoxic respiratory failure secondary to Covid: Maintain oxygen saturation greater than 88%. Currently requiring 4 L. Rest of vitals otherwise unremarkable. May consider CT scan if worsening dyspnea/increasing oxygen requirements. Wells score: 3.0 Continue Remdesivr, Dexamethasone, Combivent and supplemental o2 Encourage Spirometry and proning as tolerated Euvolemic at this time; encourage PO intake Continue to monitor Initiate Levofloxacin for concerns for secondary infection; (increasing o2 since arrival and duration of symptoms); consider deescalation if/when appropriate 2. Hyponatremia: continue to monitor; recheck BMP in AM 3. PMH: Continue Metoprolol Continue Levothyroxine <Harvey Kahn - Last Filed: 12/31/20 21:33> H&P History of Present Illness - General Admit Problem/Dx: Admission Diagnosis/Problem Admission Diagnosis/Problem Hypoxia Exam - Vital Signs Vital Signs: Last Vital Signs Temp 36.5 C 12/31/20 19:26 Pulse 81 12/31/20 19:26 Resp 19 12/31/20 19:26 BP 118/65 12/31/20 19:26 Pulse Ox 92 L 12/31/20 21:00 - Patient Data Lab Results Last 24 hrs: Laboratory Results - last 24 hr 12/31/20 12/31/20 12/31/20 Range/Units 03:20 15:08 15:08 WBC 8.35 (4.0-11.0) K/uL RBC 4.62 (4.30-5.90) M/uL Hgb 13.6 (12.0-16.0) g/dL Hct 40.5 (36.0-46.0) % MCV 87.7 (80.0-98.0) fL MCH 29.4 (27.0-32.0) pg MCHC 33.6 (31.0-37.0) g/dL RDW Std Deviation 44.7 (28.0-62.0) fl RDW Coeff of Riddhi 14 (11.0-15.0) % Plt Count 255 (150-400) K/uL MPV 9.00 (7.40-12.00) fL Neut % (Auto) 83.4 H (48.0-80.0) % Lymph % (Auto) 11.0 L (16.0-40.0) % [place] % (Auto) 5.5 (0.0-15.0) % Eos % (Auto) 0.0 (0.0-7.0) % Baso % (Auto) 0.1 (0.0-1.5) % Neut # (Auto) 7.0 H (1.4-5.7) K/uL Lymph # (Auto) 0.9 (0.6-2.4) K/uL [place] # (Auto) 0.5 (0.0-0.8) K/uL Eos # (Auto) 0.0 (0.0-0.7) K/uL Baso # (Auto) 0.0 (0.0-0.1) K/uL Nucleated RBC % 0.0 /100WBC Nucleated RBCs # 0 K/uL Sodium 133 L (136-145) mmol/L Potassium 3.8 (3.5-5.1) mmol/L Chloride 96 L (98-107) mmol/L Carbon Dioxide 26.1 (21.0-32.0) mmol/L BUN 16 (7.0-18.0) mg/dL Creatinine 1.0 (0.6-1.0) mg/dL Est Cr Clr Drug Dosing 54.18 mL/min Estimated GFR (MDRD) 54.3 ml/min Glucose 119 H (74-106) mg/dL Calcium 8.5 (8.5-10.1) mg/dL Total Bilirubin 0.5 (0.2-1.0) mg/dL Direct Bilirubin (0.0-0.5) mg/dL AST 35 (15-37) IU/L ALT 22 (14-63) IU/L Alkaline Phosphatase 85 (46-116) U/L Troponin I < 0.050 (0.000-0.056) ng/mL Total Protein 8.2 (6.4-8.2) g/dL Albumin 3.4 (3.4-5.0) g/dL Globulin 4.8 H (2.6-4.0) g/dL Albumin/Globulin Ratio 0.7 L (0.9-1.6) Lipase 97 (73-393) U/L Urine Color Urine Appearance Urine pH (5.0-8.0) Ur Specific [place] (1.001-1.035) Urine Protein (NEGATIVE) mg/dL Urine Glucose (UA) (NEGATIVE) mg/dL Urine Ketones (NEGATIVE) mg/dL Urine Occult Blood (NEGATIVE) Urine Nitrite (NEGATIVE) Urine Bilirubin (NEGATIVE) Urine Urobilinogen (<2.0) EU/dL Ur Leukocyte Esterase (NEGATIVE) Urine RBC (0-2/HPF) Urine WBC (0-5/HPF) Ur Epithelial Cells (NONE-FEW) Urine Bacteria (NEGATIVE) Urine Mucus (NONE-MOD) Influenza Type A RNA NEGATIVE (NEGATIVE) Influenza Type B RNA NEGATIVE (NEGATIVE) SARS-CoV-2 RNA (FREYA) POSITIVE H (NEGATIVE) 12/31/20 12/31/20 Range/Units 18:22 20:30 WBC (4.0-11.0) K/uL RBC (4.30-5.90) M/uL Hgb (12.0-16.0) g/dL Hct (36.0-46.0) % MCV (80.0-98.0) fL MCH (27.0-32.0) pg MCHC (31.0-37.0) g/dL RDW Std Deviation (28.0-62.0) fl RDW Coeff of Riddhi (11.0-15.0) % Plt Count (150-400) K/uL MPV (7.40-12.00) fL Neut % (Auto) (48.0-80.0) % Lymph % (Auto) (16.0-40.0) % [place] % (Auto) (0.0-15.0) % Eos % (Auto) (0.0-7.0) % Baso % (Auto) (0.0-1.5) % Neut # (Auto) (1.4-5.7) K/uL Lymph # (Auto) (0.6-2.4) K/uL [place] # (Auto) (0.0-0.8) K/uL Eos # (Auto) (0.0-0.7) K/uL Baso # (Auto) (0.0-0.1) K/uL Nucleated RBC % /100WBC Nucleated RBCs # K/uL Sodium 133 L (136-145) mmol/L Potassium 3.7 (3.5-5.1) mmol/L Chloride 99 (98-107) mmol/L Carbon Dioxide 21.9 (21.0-32.0) mmol/L BUN 13 (7.0-18.0) mg/dL Creatinine 0.9 (0.6-1.0) mg/dL Est Cr Clr Drug Dosing 60.20 mL/min Estimated GFR (MDRD) > 60.0 ml/min Glucose 126 H (74-106) mg/dL Calcium 7.9 L (8.5-10.1) mg/dL Total Bilirubin 0.4 (0.2-1.0) mg/dL Direct Bilirubin 0.10 (0.0-0.5) mg/dL AST 34 (15-37) IU/L ALT 19 (14-63) IU/L Alkaline Phosphatase 75 (46-116) U/L Troponin I (0.000-0.056) ng/mL Total Protein 7.0 (6.4-8.2) g/dL Albumin 2.9 L (3.4-5.0) g/dL Globulin 4.1 H (2.6-4.0) g/dL Albumin/Globulin Ratio 0.7 L (0.9-1.6) Lipase (73-393) U/L Urine Color YELLOW Urine Appearance CLEAR Urine pH 6.0 (5.0-8.0) Ur Specific [place] 1.010 (1.001-1.035) Urine Protein TRACE H (NEGATIVE) mg/dL Urine Glucose (UA) NEGATIVE (NEGATIVE) mg/dL Urine Ketones TRACE H (NEGATIVE) mg/dL Urine Occult Blood TRACE-INTACT H (NEGATIVE) Urine Nitrite NEGATIVE (NEGATIVE) Urine Bilirubin NEGATIVE (NEGATIVE) Urine Urobilinogen 0.2 (<2.0) EU/dL Ur Leukocyte Esterase NEGATIVE (NEGATIVE) Urine RBC 0-1 (0-2/HPF) Urine WBC 0-3 (0-5/HPF) Ur Epithelial Cells FEW (NONE-FEW) Urine Bacteria FEW (NEGATIVE) Urine Mucus LIGHT (NONE-MOD) Influenza Type A RNA (NEGATIVE) Influenza Type B RNA (NEGATIVE) SARS-CoV-2 RNA (FREYA) (NEGATIVE) Result Diagrams: 12/31/20 15:08 12/31/20 18:22 Sepsis Event Note - Focused Exam Vital Signs: Vital Signs Temp Pulse Resp BP BP Pulse Ox Pulse Ox 12/31/20 21:00 92 L 12/31/20 19:26 36.5 C 81 19 118/65 95 12/31/20 18:27 90 L 12/31/20 18:00 36.9 C 86 18 128/69 90 L 12/31/20 17:46 91 116/60 96 12/31/20 17:26 87 118/84 92 L 12/31/20 17:06 100 93 L 12/31/20 16:15 90 93 L 12/31/20 15:00 100 90 L 12/31/20 14:47 97 94 L 12/31/20 14:40 37.3 C 98 117/65 91 L Orders Last 24hrs: Active Orders 24 hr Category Date Time Status Admission Status [Patient Status] [ADT] Stat ADT 12/31/20 17:01 Active Ambulate [RC] ASDIRECTED Care 12/31/20 17:37 Active Antiembolic Devices [RC] PER UNIT ROUTINE Care 12/31/20 17:38 Active Bladder Scan [RC] ASDIRECTED Care 12/31/20 14:51 Active Cardiac Monitoring [RC] . DIRECTED Care 12/31/20 14:50 Active Oxygen Therapy [RC] PRN Care 12/31/20 17:37 Active Oxygen Therapy [RC] PRN Care 12/31/20 18:42 Active RT Post Treatment Assessment [RC] Click to Edit Care 12/31/20 20:03 Active RT Pre-Treatment Assessment [RC] Click to Edit Care 12/31/20 20:03 Active Telemetry Monitoring [Cardiac Monitoring] [RC] Q8H Care 12/31/20 17:25 Active VTE/DVT Education [RC] PER UNIT ROUTINE Care 12/31/20 17:37 Active VTE/DVT Education [RC] PER UNIT ROUTINE Care 12/31/20 18:42 Active Vital Signs [RC] Q4H Care 12/31/20 17:37 Active Vital Signs [RC] Q4H Care 12/31/20 18:42 Active Heart Healthy Diet [DIET] Diet 12/31/20 Breakfast Active BILIRUBIN DIRECT [CHEM] DAILY Lab 01/01/21 18:00 Ordered BILIRUBIN DIRECT [CHEM] DAILY Lab 01/02/21 18:00 Ordered BILIRUBIN DIRECT [CHEM] DAILY Lab 01/03/21 18:00 Ordered BILIRUBIN DIRECT [CHEM] DAILY Lab 01/04/21 18:00 Ordered CBC WITH AUTO DIFF [HEME] AM Lab 01/01/21 05:11 Ordered CBC WITH AUTO DIFF [HEME] AM Lab 01/02/21 05:11 Ordered CBC WITH AUTO DIFF [HEME] AM Lab 01/03/21 05:11 Ordered COMPREHENSIVE METABOLIC PN,CMP [CHEM] DAILY Lab 01/01/21 18:00 Ordered COMPREHENSIVE METABOLIC PN,CMP [CHEM] DAILY Lab 01/02/21 18:00 Ordered COMPREHENSIVE METABOLIC PN,CMP [CHEM] DAILY Lab 01/03/21 18:00 Ordered COMPREHENSIVE METABOLIC PN,CMP [CHEM] DAILY Lab 01/04/21 18:00 Ordered Acetaminophen [TylenoL] Med 12/31/20 17:37 Active 650 mg PO Q4H PRN Albuterol/Ipratropium [Combivent Respimat] Med 12/31/20 20:02 Active See Dose Instructions INH Q4H PRN Heparin Sodium Med 12/31/20 20:00 Active 5,000 units SUBCUT Q8H Levofloxacin/Dextrose 5%-Water [Levaquin in D5W 750 MG/ Med 12/31/20 20:00 Active 150 ML] 750 mg Premix Bag 1 bag IV Q24H Metoprolol Succinate [Toprol XL] Med 12/31/20 21:30 Active 25 mg PO BEDTIME Ondansetron [Zofran ODT] Med 12/31/20 18:42 Active 4 mg PO Q4H PRN Remdesivir 100 mg Med 01/01/21 09:00 Active Sodium Chloride 0.9% [Normal Saline] 100 ml IV Q24H dexAMETHasone Med 01/01/21 09:00 Active 6 mg PO DAILY RT Acapella [RESPCARE] Routine Oth 12/31/20 20:03 Active Sequential Compression Device [OM.PC] Per Unit Routine Oth 12/31/20 17:38 Ordered Resuscitation Status Routine Resus Stat 12/31/20 18:42 Ordered Medication Orders Acetaminophen (Acetaminophen 325 Mg Tab) 650 mg PO Q4H PRN PRN Reason: Pain (Mild 1-3)/fever Albuterol/Ipratropium (Albuterol/Ipratropium 4 Gm Inhalation [place]) 0 gm INH Q4H PRN PRN Reason: Dyspnea Dexamethasone (Dexamethasone 4 Mg Tab) 6 mg PO DAILY [facility] Heparin Sodium (Porcine) (Heparin Sodium 5,000 Units/Ml Vial) 5,000 units SUBCUT Q8H [facility] Last Admin: 12/31/20 20:25 Dose: 5,000 units Documented by: FRASVAL Remdesivir 100 mg/ Sodium (Chloride) 100 mls @ 100 mls/hr IV Q24H [facility] Stop: 01/04/21 09:59 Levofloxacin/Dextrose 750 mg/ (Premix) 150 mls @ 100 mls/hr IV Q24H [facility] Last Admin: 12/31/20 20:28 Dose: 100 mls/hr Documented by: DARIA Metoprolol Succinate (Metoprolol Succinate 25 Mg Tab.Er) 25 mg PO BEDTIME [facility] Ondansetron HCl (Ondansetron 4 Mg Tab.Dis) 4 mg PO Q4H PRN PRN Reason: nausea, able to take PO Assessment/Plan Comment:: I performed a history and physical exam of the patient and discussed management with resident. I have reviewed the residents note and agree with documented findings and plan unless otherwise specified in my note.
[2020-12-31 18:57] LABS: BLOOD UREA NITROGEN,BUN 13 mg/dL (7.0-18.0); CARBON DIOXIDE,CO2 21.9 mmol/L (21.0-32.0); CHLORIDE,CL 99 mmol/L (98-107); GLUCOSE RANDOM 126 mg/dL (74-106); POTASSIUM,K 3.7 mmol/L (3.5-5.1); SODIUM,NA 133 mmol/L (136-145)
[2020-12-31] MEDS ORDERED: Albuterol/Ipratropium 4 GM Inhalation Spray INH PRN (20:02)
[2020-12-31] MEDS: Heparin Sodium 5,000 Units/ML Vial SUBCUT SCH (20:25)
[2020-12-31] MEDS: Levofloxacin/Dextrose 5%-Water 750 MG in Premix Bag 1 BAG IV SCH (20:28)
[2020-12-31] MEDS: Metoprolol Succinate 25 MG Tab.ER PO SCH (21:39)
[2020-12-31] MEDS ORDERED: guaiFENesin 100 MG/5 ML Soln 10 ML UD Cup PO PRN (21:39)
[2020-12-31] MEDS ORDERED: guaiFENesin 100 MG/5 ML Soln 5 ML UD Cup PO PRN (21:43)
[2021-01-01] MEDS: Heparin Sodium 5,000 Units/ML Vial SUBCUT SCH ×3 (04:16→19:41)
[2021-01-01] MEDS: Levothyroxine 100 MCG Tab PO SCH (06:32)
[2021-01-01] MEDS: Dexamethasone 4 MG Tab PO SCH (08:04)
[2021-01-01] MEDS: Cholecalciferol (Vitamin D3) 25 MCG Tab PO SCH (08:04)
[2021-01-01] MEDS: Aspirin 81 MG Tab.EC PO SCH (08:05)
[2021-01-01] MEDS ORDERED: REMDESIVIR 100 MG in Sodium Chloride 0.9% 100 ML IV SCH (09:00)
--- NOTE | 2021-01-01 09:03 | PCM.PN ---
- General Info Date of Service: 01/01/21 Subjective Update: Bedside: no acute distress. Mentions fatigue but feeling the same since admission. NO acute distress noted - Review of Systems General: Reports: Weakness, Fatigue HEENT: Reports: No Symptoms Pulmonary: Reports: Cough Cardiovascular: Reports: Dyspnea on Exertion Gastrointestinal: Reports: No Symptoms Genitourinary: Reports: No Symptoms Musculoskeletal: Reports: No Symptoms Neurological: Reports: No Symptoms - Patient Data Vitals - Most Recent: Last Vital Signs Temp 96.5 F L 01/01/21 07:45 Pulse 65 01/01/21 07:45 Resp 94 H 01/01/21 07:45 BP 115/56 L 01/01/21 07:45 Pulse Ox 94 L 01/01/21 07:45 Weight - Most Recent: 82.146 kg I&O - Last 24 Hours: Intake & Output 12/31/20 01/01/21 01/01/21 22:59 06:59 14:59 Intake Total 400 620 Output Total 2300 Balance 400 -1680 Lab Results Last 24 Hours: Laboratory Results - last 24 hr 12/31/20 12/31/20 12/31/20 Range/Units 03:20 15:08 15:08 WBC 8.35 (4.0-11.0) K/uL RBC 4.62 (4.30-5.90) M/uL Hgb 13.6 (12.0-16.0) g/dL Hct 40.5 (36.0-46.0) % MCV 87.7 (80.0-98.0) fL MCH 29.4 (27.0-32.0) pg MCHC 33.6 (31.0-37.0) g/dL RDW Std Deviation 44.7 (28.0-62.0) fl RDW Coeff of Riddhi 14 (11.0-15.0) % Plt Count 255 (150-400) K/uL MPV 9.00 (7.40-12.00) fL Neut % (Auto) 83.4 H (48.0-80.0) % Lymph % (Auto) 11.0 L (16.0-40.0) % [place] % (Auto) 5.5 (0.0-15.0) % Eos % (Auto) 0.0 (0.0-7.0) % Baso % (Auto) 0.1 (0.0-1.5) % Neut # (Auto) 7.0 H (1.4-5.7) K/uL Lymph # (Auto) 0.9 (0.6-2.4) K/uL [place] # (Auto) 0.5 (0.0-0.8) K/uL Eos # (Auto) 0.0 (0.0-0.7) K/uL Baso # (Auto) 0.0 (0.0-0.1) K/uL Nucleated RBC % 0.0 /100WBC Nucleated RBCs # 0 K/uL Sodium 133 L (136-145) mmol/L Potassium 3.8 (3.5-5.1) mmol/L Chloride 96 L (98-107) mmol/L Carbon Dioxide 26.1 (21.0-32.0) mmol/L BUN 16 (7.0-18.0) mg/dL Creatinine 1.0 (0.6-1.0) mg/dL Est Cr Clr Drug Dosing 54.18 mL/min Estimated GFR (MDRD) 54.3 ml/min Glucose 119 H (74-106) mg/dL Calcium 8.5 (8.5-10.1) mg/dL Total Bilirubin 0.5 (0.2-1.0) mg/dL Direct Bilirubin (0.0-0.5) mg/dL AST 35 (15-37) IU/L ALT 22 (14-63) IU/L Alkaline Phosphatase 85 (46-116) U/L Troponin I < 0.050 (0.000-0.056) ng/mL Total Protein 8.2 (6.4-8.2) g/dL Albumin 3.4 (3.4-5.0) g/dL Globulin 4.8 H (2.6-4.0) g/dL Albumin/Globulin Ratio 0.7 L (0.9-1.6) Lipase 97 (73-393) U/L Urine Color Urine Appearance Urine pH (5.0-8.0) Ur Specific [place] (1.001-1.035) Urine Protein (NEGATIVE) mg/dL Urine Glucose (UA) (NEGATIVE) mg/dL Urine Ketones (NEGATIVE) mg/dL Urine Occult Blood (NEGATIVE) Urine Nitrite (NEGATIVE) Urine Bilirubin (NEGATIVE) Urine Urobilinogen (<2.0) EU/dL Ur Leukocyte Esterase (NEGATIVE) Urine RBC (0-2/HPF) Urine WBC (0-5/HPF) Ur Epithelial Cells (NONE-FEW) Urine Bacteria (NEGATIVE) Urine Mucus (NONE-MOD) Influenza Type A RNA NEGATIVE (NEGATIVE) Influenza Type B RNA NEGATIVE (NEGATIVE) SARS-CoV-2 RNA (FREYA) POSITIVE H (NEGATIVE) 12/31/20 12/31/20 01/01/21 Range/Units 18:22 20:30 05:27 WBC 4.64 (4.0-11.0) K/uL RBC 4.21 L (4.30-5.90) M/uL Hgb 12.1 (12.0-16.0) g/dL Hct 36.8 (36.0-46.0) % MCV 87.4 (80.0-98.0) fL MCH 28.7 (27.0-32.0) pg MCHC 32.9 (31.0-37.0) g/dL RDW Std Deviation 44.7 (28.0-62.0) fl RDW Coeff of Riddhi 14 (11.0-15.0) % Plt Count 269 (150-400) K/uL MPV 9.10 (7.40-12.00) fL Neut % (Auto) 76.5 (48.0-80.0) % Lymph % (Auto) 16.2 (16.0-40.0) % [place] % (Auto) 7.1 (0.0-15.0) % Eos % (Auto) 0.0 (0.0-7.0) % Baso % (Auto) 0.2 (0.0-1.5) % Neut # (Auto) 3.6 (1.4-5.7) K/uL Lymph # (Auto) 0.8 (0.6-2.4) K/uL [place] # (Auto) 0.3 (0.0-0.8) K/uL Eos # (Auto) 0.0 (0.0-0.7) K/uL Baso # (Auto) 0.0 (0.0-0.1) K/uL Nucleated RBC % 0.0 /100WBC Nucleated RBCs # 0 K/uL Sodium 133 L (136-145) mmol/L Potassium 3.7 (3.5-5.1) mmol/L Chloride 99 (98-107) mmol/L Carbon Dioxide 21.9 (21.0-32.0) mmol/L BUN 13 (7.0-18.0) mg/dL Creatinine 0.9 (0.6-1.0) mg/dL Est Cr Clr Drug Dosing 60.20 mL/min Estimated GFR (MDRD) > 60.0 ml/min Glucose 126 H (74-106) mg/dL Calcium 7.9 L (8.5-10.1) mg/dL Total Bilirubin 0.4 (0.2-1.0) mg/dL Direct Bilirubin 0.10 (0.0-0.5) mg/dL AST 34 (15-37) IU/L ALT 19 (14-63) IU/L Alkaline Phosphatase 75 (46-116) U/L Troponin I (0.000-0.056) ng/mL Total Protein 7.0 (6.4-8.2) g/dL Albumin 2.9 L (3.4-5.0) g/dL Globulin 4.1 H (2.6-4.0) g/dL Albumin/Globulin Ratio 0.7 L (0.9-1.6) Lipase (73-393) U/L Urine Color YELLOW Urine Appearance CLEAR Urine pH 6.0 (5.0-8.0) Ur Specific [place] 1.010 (1.001-1.035) Urine Protein TRACE H (NEGATIVE) mg/dL Urine Glucose (UA) NEGATIVE (NEGATIVE) mg/dL Urine Ketones TRACE H (NEGATIVE) mg/dL Urine Occult Blood TRACE-INTACT H (NEGATIVE) Urine Nitrite NEGATIVE (NEGATIVE) Urine Bilirubin NEGATIVE (NEGATIVE) Urine Urobilinogen 0.2 (<2.0) EU/dL Ur Leukocyte Esterase NEGATIVE (NEGATIVE) Urine RBC 0-1 (0-2/HPF) Urine WBC 0-3 (0-5/HPF) Ur Epithelial Cells FEW (NONE-FEW) Urine Bacteria FEW (NEGATIVE) Urine Mucus LIGHT (NONE-MOD) Influenza Type A RNA (NEGATIVE) Influenza Type B RNA (NEGATIVE) SARS-CoV-2 RNA (FREYA) (NEGATIVE) Med Orders - Current: Current Medications Acetaminophen (Acetaminophen 325 Mg Tab) 650 mg PO Q4H PRN PRN Reason: Pain (Mild 1-3)/fever Albuterol/Ipratropium (Albuterol/Ipratropium 4 Gm Inhalation [place]) 0 gm INH Q4H PRN PRN Reason: Dyspnea Aspirin (Aspirin 81 Mg Tab.Ec) 81 mg PO DAILY [facility] Last Admin: 01/01/21 08:05 Dose: 81 mg Documented by: Cholecalciferol (Cholecalciferol (Vitamin D3) 25 Mcg Tab) 50 mcg PO DAILY [facility] Last Admin: 01/01/21 08:04 Dose: 50 mcg Documented by: Dexamethasone (Dexamethasone 4 Mg Tab) 6 mg PO DAILY [facility] Last Admin: 01/01/21 08:04 Dose: 6 mg Documented by: Guaifenesin (Guaifenesin 100 Mg/5 Ml Soln 5 Ml Ud Cup) 200 mg PO Q4H PRN PRN Reason: Cough Last Admin: 01/01/21 04:18 Dose: 200 mg Documented by: Heparin Sodium (Porcine) (Heparin Sodium 5,000 Units/Ml Vial) 5,000 units SUBCUT Q8H [facility] Last Admin: 01/01/21 04:16 Dose: 5,000 units Documented by: Levofloxacin/Dextrose 750 mg/ (Premix) 150 mls @ 100 mls/hr IV Q24H [facility] Last Admin: 12/31/20 20:28 Dose: 100 mls/hr Documented by: Remdesivir 100 mg/ Sodium (Chloride) 100 mls @ 100 mls/hr IV Q24H [facility] Stop: 01/04/21 19:59 Levothyroxine Sodium (Levothyroxine 100 Mcg Tab) 100 mcg PO ACBREAKFAST [facility] Last Admin: 01/01/21 06:32 Dose: 100 mcg Documented by: Metoprolol Succinate (Metoprolol Succinate 25 Mg Tab.Er) 25 mg PO BEDTIME [facility] Last Admin: 12/31/20 21:39 Dose: 25 mg Documented by: Ondansetron HCl (Ondansetron 4 Mg Tab.Dis) 4 mg PO Q4H PRN PRN Reason: nausea, able to take PO Zinc [Zinc] 50 Mg (Tablet) 1 each PO DAILY [facility] Discontinued Medications Dexamethasone (Dexamethasone 10 Mg/Ml Sdv) 6 mg IVPUSH ONETIME ONE Stop: 12/31/20 17:01 Last Admin: 12/31/20 17:22 Dose: 6 mg Documented by: Sodium Chloride (Normal Saline) 1,000 mls @ 999 mls/hr IV BOLUS ONE Stop: 12/31/20 15:50 Last Admin: 12/31/20 14:59 Dose: 999 mls/hr Documented by: Remdesivir 200 mg/ Sodium (Chloride) 250 mls @ 250 mls/hr IV ONETIME ONE Stop: 12/31/20 17:52 Last Admin: 12/31/20 19:23 Dose: 250 mls/hr Documented by: Remdesivir 100 mg/ Sodium (Chloride) 100 mls @ 100 mls/hr IV Q24H [facility] Stop: 01/04/21 09:59 - Exam Quality Assessment: Supplemental Oxygen General: Alert, Oriented HEENT: EOMI Neck: Supple Lungs: Other (coarse BS bilaterally; moving air well ) Cardiovascular: Regular Rate, Regular Rhythm GI/Abdominal Exam: Soft, Non-Tender Extremities: Normal Inspection Psy/Mental Status: Alert, Normal Mood - Patient Data Lab Results Last 24 hrs: Laboratory Results - last 24 hr 12/31/20 12/31/20 12/31/20 Range/Units 03:20 15:08 15:08 WBC 8.35 (4.0-11.0) K/uL RBC 4.62 (4.30-5.90) M/uL Hgb 13.6 (12.0-16.0) g/dL Hct 40.5 (36.0-46.0) % MCV 87.7 (80.0-98.0) fL MCH 29.4 (27.0-32.0) pg MCHC 33.6 (31.0-37.0) g/dL RDW Std Deviation 44.7 (28.0-62.0) fl RDW Coeff of Riddhi 14 (11.0-15.0) % Plt Count 255 (150-400) K/uL MPV 9.00 (7.40-12.00) fL Neut % (Auto) 83.4 H (48.0-80.0) % Lymph % (Auto) 11.0 L (16.0-40.0) % [place] % (Auto) 5.5 (0.0-15.0) % Eos % (Auto) 0.0 (0.0-7.0) % Baso % (Auto) 0.1 (0.0-1.5) % Neut # (Auto) 7.0 H (1.4-5.7) K/uL Lymph # (Auto) 0.9 (0.6-2.4) K/uL [place] # (Auto) 0.5 (0.0-0.8) K/uL Eos # (Auto) 0.0 (0.0-0.7) K/uL Baso # (Auto) 0.0 (0.0-0.1) K/uL Nucleated RBC % 0.0 /100WBC Nucleated RBCs # 0 K/uL Sodium 133 L (136-145) mmol/L Potassium 3.8 (3.5-5.1) mmol/L Chloride 96 L (98-107) mmol/L Carbon Dioxide 26.1 (21.0-32.0) mmol/L BUN 16 (7.0-18.0) mg/dL Creatinine 1.0 (0.6-1.0) mg/dL Est Cr Clr Drug Dosing 54.18 mL/min Estimated GFR (MDRD) 54.3 ml/min Glucose 119 H (74-106) mg/dL Calcium 8.5 (8.5-10.1) mg/dL Total Bilirubin 0.5 (0.2-1.0) mg/dL Direct Bilirubin (0.0-0.5) mg/dL AST 35 (15-37) IU/L ALT 22 (14-63) IU/L Alkaline Phosphatase 85 (46-116) U/L Troponin I < 0.050 (0.000-0.056) ng/mL Total Protein 8.2 (6.4-8.2) g/dL Albumin 3.4 (3.4-5.0) g/dL Globulin 4.8 H (2.6-4.0) g/dL Albumin/Globulin Ratio 0.7 L (0.9-1.6) Lipase 97 (73-393) U/L Urine Color Urine Appearance Urine pH (5.0-8.0) Ur Specific [place] (1.001-1.035) Urine Protein (NEGATIVE) mg/dL Urine Glucose (UA) (NEGATIVE) mg/dL Urine Ketones (NEGATIVE) mg/dL Urine Occult Blood (NEGATIVE) Urine Nitrite (NEGATIVE) Urine Bilirubin (NEGATIVE) Urine Urobilinogen (<2.0) EU/dL Ur Leukocyte Esterase (NEGATIVE) Urine RBC (0-2/HPF) Urine WBC (0-5/HPF) Ur Epithelial Cells (NONE-FEW) Urine Bacteria (NEGATIVE) Urine Mucus (NONE-MOD) Influenza Type A RNA NEGATIVE (NEGATIVE) Influenza Type B RNA NEGATIVE (NEGATIVE) SARS-CoV-2 RNA (FREYA) POSITIVE H (NEGATIVE) 12/31/20 12/31/20 01/01/21 Range/Units 18:22 20:30 05:27 WBC 4.64 (4.0-11.0) K/uL RBC 4.21 L (4.30-5.90) M/uL Hgb 12.1 (12.0-16.0) g/dL Hct 36.8 (36.0-46.0) % MCV 87.4 (80.0-98.0) fL MCH 28.7 (27.0-32.0) pg MCHC 32.9 (31.0-37.0) g/dL RDW Std Deviation 44.7 (28.0-62.0) fl RDW Coeff of Riddhi 14 (11.0-15.0) % Plt Count 269 (150-400) K/uL MPV 9.10 (7.40-12.00) fL Neut % (Auto) 76.5 (48.0-80.0) % Lymph % (Auto) 16.2 (16.0-40.0) % [place] % (Auto) 7.1 (0.0-15.0) % Eos % (Auto) 0.0 (0.0-7.0) % Baso % (Auto) 0.2 (0.0-1.5) % Neut # (Auto) 3.6 (1.4-5.7) K/uL Lymph # (Auto) 0.8 (0.6-2.4) K/uL [place] # (Auto) 0.3 (0.0-0.8) K/uL Eos # (Auto) 0.0 (0.0-0.7) K/uL Baso # (Auto) 0.0 (0.0-0.1) K/uL Nucleated RBC % 0.0 /100WBC Nucleated RBCs # 0 K/uL Sodium 133 L (136-145) mmol/L Potassium 3.7 (3.5-5.1) mmol/L Chloride 99 (98-107) mmol/L Carbon Dioxide 21.9 (21.0-32.0) mmol/L BUN 13 (7.0-18.0) mg/dL Creatinine 0.9 (0.6-1.0) mg/dL Est Cr Clr Drug Dosing 60.20 mL/min Estimated GFR (MDRD) > 60.0 ml/min Glucose 126 H (74-106) mg/dL Calcium 7.9 L (8.5-10.1) mg/dL Total Bilirubin 0.4 (0.2-1.0) mg/dL Direct Bilirubin 0.10 (0.0-0.5) mg/dL AST 34 (15-37) IU/L ALT 19 (14-63) IU/L Alkaline Phosphatase 75 (46-116) U/L Troponin I (0.000-0.056) ng/mL Total Protein 7.0 (6.4-8.2) g/dL Albumin 2.9 L (3.4-5.0) g/dL Globulin 4.1 H (2.6-4.0) g/dL Albumin/Globulin Ratio 0.7 L (0.9-1.6) Lipase (73-393) U/L Urine Color YELLOW Urine Appearance CLEAR Urine pH 6.0 (5.0-8.0) Ur Specific [place] 1.010 (1.001-1.035) Urine Protein TRACE H (NEGATIVE) mg/dL Urine Glucose (UA) NEGATIVE (NEGATIVE) mg/dL Urine Ketones TRACE H (NEGATIVE) mg/dL Urine Occult Blood TRACE-INTACT H (NEGATIVE) Urine Nitrite NEGATIVE (NEGATIVE) Urine Bilirubin NEGATIVE (NEGATIVE) Urine Urobilinogen 0.2 (<2.0) EU/dL Ur Leukocyte Esterase NEGATIVE (NEGATIVE) Urine RBC 0-1 (0-2/HPF) Urine WBC 0-3 (0-5/HPF) Ur Epithelial Cells FEW (NONE-FEW) Urine Bacteria FEW (NEGATIVE) Urine Mucus LIGHT (NONE-MOD) Influenza Type A RNA (NEGATIVE) Influenza Type B RNA (NEGATIVE) SARS-CoV-2 RNA (FREYA) (NEGATIVE) Result Diagrams: 01/01/21 05:27 01/01/21 05:27 Sepsis Event Note - Evaluation Sepsis Screening Result: No Definite Risk - Focused Exam Vital Signs: Vital Signs Temp Pulse Pulse Resp BP BP Pulse Ox 01/01/21 07:45 96.5 F L 65 94 H 115/56 L 94 L 01/01/21 04:13 96.1 F L 65 19 105/66 95 01/01/21 03:20 20 91 L 12/31/20 23:53 97.6 F 68 20 106/70 91 L 12/31/20 21:39 72 108/62 - Problem List & Annotations (1) COVID-19 virus infection SNOMED Code(s): 072612009 Code(s): U07.1 - COVID-19 Status: Acute Current Visit: Yes (2) Hypoxia SNOMED Code(s): 017364000 Code(s): R09.02 - HYPOXEMIA Status: Acute Current Visit: Yes - Problem List Review Problem List Initiated/Reviewed/Updated: Yes - My Orders Last 24 Hours: My Active Orders 12/31/20 18:42 Oxygen Therapy [RC] PRN VTE/DVT Education [RC] PER UNIT ROUTINE Vital Signs [RC] Q4H Ondansetron [Zofran ODT] 4 mg PO Q4H PRN Resuscitation Status Routine 12/31/20 20:00 Heparin Sodium 5,000 units SUBCUT Q8H Levofloxacin/Dextrose 5%-Water [Levaquin in D5W 750 MG/150 ML] 750 mg Premix Bag 1 bag IV Q24H 12/31/20 20:02 Albuterol/Ipratropium [Combivent Respimat] See Dose Instructions INH Q4H PRN 12/31/20 20:03 RT Post Treatment Assessment [RC] Click to Edit RT Pre-Treatment Assessment [RC] Click to Edit RT Acapella [RESPCARE] Routine 12/31/20 21:30 Metoprolol Succinate [Toprol XL] 25 mg PO BEDTIME 01/01/21 09:00 dexAMETHasone 6 mg PO DAILY 01/02/21 05:11 CBC WITH AUTO DIFF [HEME] AM 01/03/21 05:11 CBC WITH AUTO DIFF [HEME] AM - Plan Plan:: Assessment: 1. Acute hypoxic respiratory failure secondary to Covi:improving 2. Hyponatremia/mild 3. Past medical history: Hypothyroidism, hyperlipidemia, anxiety Plan DVT prophylaxis: Heparin 5000 every 8 Telemetry Heart healthy diet 1. Acute hypoxic respiratory failure secondary to Covid: Maintain oxygen saturation greater than 88%. Currently requiring 2.5 L. Rest of vitals otherwise unremarkable. May consider CT scan if worsening dyspnea/increasing oxygen requirements. Wells score: 3.0 Continue Remdesivr, Dexamethasone, Combivent and supplemental o2 Encourage Spirometry and proning as tolerated Euvolemic at this time; encourage PO intake Continue to monitor Continue Levofloxacin for concerns for secondary infection; (increasing o2 since arrival and duration of symptoms); consider deescalation if/when appropriate 2. Hyponatremia: continue to monitor; recheck BMP in AM 3. PMH: Continue Metoprolol Continue Levothyroxine
[2021-01-01 10:11] LABS: BLOOD UREA NITROGEN,BUN 14 mg/dL (7.0-18.0); CARBON DIOXIDE,CO2 25.7 mmol/L (21.0-32.0); CHLORIDE,CL 105 mmol/L (98-107); GLUCOSE RANDOM 136 mg/dL (74-106); SODIUM,NA 139 mmol/L (136-145)
[2021-01-01] MEDS: Zinc [Zinc] 50 MG Tablet PO SCH (12:11)
[2021-01-01] MEDS: REMDESIVIR 100 MG in Sodium Chloride 0.9% 100 ML IV SCH (18:53)
[2021-01-01] MEDS: Levofloxacin/Dextrose 5%-Water 750 MG in Premix Bag 1 BAG IV SCH (20:23)
[2021-01-01] MEDS: Metoprolol Succinate 25 MG Tab.ER PO SCH (20:24)
[2021-01-02] MEDS: Heparin Sodium 5,000 Units/ML Vial SUBCUT SCH ×3 (04:20→20:21)
[2021-01-02] MEDS: Levothyroxine 100 MCG Tab PO SCH (06:38)
[2021-01-02 06:48] LABS: BLOOD UREA NITROGEN,BUN 23 mg/dL (7.0-18.0); CARBON DIOXIDE,CO2 25.7 mmol/L (21.0-32.0); CHLORIDE,CL 105 mmol/L (98-107); GLUCOSE RANDOM 116 mg/dL (74-106); SODIUM,NA 140 mmol/L (136-145)
[2021-01-02] MEDS: Cholecalciferol (Vitamin D3) 25 MCG Tab PO SCH (08:56)
[2021-01-02] MEDS: Dexamethasone 4 MG Tab PO SCH (08:56)
[2021-01-02] MEDS: Aspirin 81 MG Tab.EC PO SCH (08:56)
[2021-01-02] MEDS: Zinc [Zinc] 50 MG Tablet PO SCH (08:57)
--- NOTE | 2021-01-02 11:18 | PCM.PN ---
- General Info Date of Service: 01/02/21 Subjective Update: Bedside: no acute distress. Mentions appetite is low but is not having racquel CP. Mild SOB w. exertion but in no acute distress - Review of Systems General: Reports: Fatigue HEENT: Reports: No Symptoms Pulmonary: Reports: Cough. Denies: Wheezing Cardiovascular: Reports: Dyspnea on Exertion. Denies: Chest Pain, Palpitations Gastrointestinal: Reports: Constipation Genitourinary: Reports: No Symptoms Musculoskeletal: Reports: No Symptoms Neurological: Reports: No Symptoms Psychiatric: Reports: No Symptoms - Patient Data Vitals - Most Recent: Last Vital Signs Temp 97.3 F 01/02/21 07:45 Pulse 62 01/02/21 07:45 Resp 16 01/02/21 07:45 BP 115/70 01/02/21 07:45 Pulse Ox 94 L 01/02/21 07:45 Weight - Most Recent: 82.146 kg I&O - Last 24 Hours: Intake & Output 01/01/21 01/02/21 01/02/21 22:59 06:59 14:59 Intake Total 900 Output Total 1650 Balance -750 Lab Results Last 24 Hours: Laboratory Results - last 24 hr 12/31/20 01/02/21 01/02/21 Range/Units 15:20 06:00 06:00 WBC 7.77 (4.0-11.0) K/uL RBC 4.37 (4.30-5.90) M/uL Hgb 12.6 (12.0-16.0) g/dL Hct 38.5 (36.0-46.0) % MCV 88.1 (80.0-98.0) fL MCH 28.8 (27.0-32.0) pg MCHC 32.7 (31.0-37.0) g/dL RDW Std Deviation 45.3 (28.0-62.0) fl RDW Coeff of Riddhi 14 (11.0-15.0) % Plt Count 353 (150-400) K/uL MPV 9.30 (7.40-12.00) fL Add Manual Diff YES Neutrophils % (Manual) 66 (48.0-80.0) % Lymphocytes % (Manual) 25 (16.0-40.0) % Monocytes % (Manual) 9 (0.0-15.0) % Nucleated RBC % 0.0 /100WBC Absolute Seg Neuts 5.1 (1.4-5.7) Lymphocytes # (Manual) 1.9 (0.6-2.4) Monocytes # (Manual) 0.7 (0.0-0.8) Nucleated RBCs # 0 K/uL Sodium 140 (136-145) mmol/L Potassium 5.0 (3.5-5.1) mmol/L Chloride 105 (98-107) mmol/L Carbon Dioxide 25.7 (21.0-32.0) mmol/L BUN 23 H (7.0-18.0) mg/dL Creatinine 0.9 (0.6-1.0) mg/dL Est Cr Clr Drug Dosing 60.20 mL/min Estimated GFR (MDRD) > 60.0 ml/min Glucose 116 H (74-106) mg/dL Calcium 8.9 (8.5-10.1) mg/dL Total Bilirubin 0.3 (0.2-1.0) mg/dL AST 31 (15-37) IU/L ALT 21 (14-63) IU/L Alkaline Phosphatase 69 (46-116) U/L Total Protein 6.7 (6.4-8.2) g/dL Albumin 2.5 L (3.4-5.0) g/dL Globulin 4.2 H (2.6-4.0) g/dL Albumin/Globulin Ratio 0.6 L (0.9-1.6) Influenza Type A RNA NEGATIVE (NEGATIVE) Influenza Type B RNA NEGATIVE (NEGATIVE) SARS-CoV-2 RNA (FREYA) POSITIVE H (NEGATIVE) Med Orders - Current: Current Medications Acetaminophen (Acetaminophen 325 Mg Tab) 650 mg PO Q4H PRN PRN Reason: Pain (Mild 1-3)/fever Albuterol/Ipratropium (Albuterol/Ipratropium 4 Gm Inhalation [place]) 0 gm INH Q4H PRN PRN Reason: Dyspnea Aspirin (Aspirin 81 Mg Tab.Ec) 81 mg PO DAILY [facility] Last Admin: 01/02/21 08:56 Dose: 81 mg Documented by: Cholecalciferol (Cholecalciferol (Vitamin D3) 25 Mcg Tab) 50 mcg PO DAILY [facility] Last Admin: 01/02/21 08:56 Dose: 50 mcg Documented by: Dexamethasone (Dexamethasone 4 Mg Tab) 6 mg PO DAILY [facility] Last Admin: 01/02/21 08:56 Dose: 6 mg Documented by: Guaifenesin (Guaifenesin 100 Mg/5 Ml Soln 5 Ml Ud Cup) 200 mg PO Q4H PRN PRN Reason: Cough Last Admin: 01/01/21 04:18 Dose: 200 mg Documented by: Heparin Sodium (Porcine) (Heparin Sodium 5,000 Units/Ml Vial) 5,000 units SUBCUT Q8H [facility] Last Admin: 01/02/21 04:20 Dose: 5,000 units Documented by: Levofloxacin/Dextrose 750 mg/ (Premix) 150 mls @ 100 mls/hr IV Q24H [facility] Last Admin: 01/01/21 20:23 Dose: 100 mls/hr Documented by: Remdesivir 100 mg/ Sodium (Chloride) 100 mls @ 100 mls/hr IV Q24H [facility] Stop: 01/04/21 19:59 Last Admin: 01/01/21 18:53 Dose: 100 mls/hr Documented by: Levothyroxine Sodium (Levothyroxine 100 Mcg Tab) 100 mcg PO ACBREAKFAST [facility] Last Admin: 01/02/21 06:38 Dose: 100 mcg Documented by: Lorazepam (Lorazepam 0.5 Mg Tab) 1 mg PO BEDTIME PRN PRN Reason: Anxiety Metoprolol Succinate (Metoprolol Succinate 25 Mg Tab.Er) 25 mg PO BEDTIME [facility] Last Admin: 01/01/21 20:24 Dose: 25 mg Documented by: Ondansetron HCl (Ondansetron 4 Mg Tab.Dis) 4 mg PO Q4H PRN PRN Reason: nausea, able to take PO Zinc [Zinc] 50 Mg (Tablet) 1 each PO DAILY [facility] Last Admin: 01/02/21 08:57 Dose: Not Given Documented by: Discontinued Medications Dexamethasone (Dexamethasone 10 Mg/Ml Sdv) 6 mg IVPUSH ONETIME ONE Stop: 12/31/20 17:01 Last Admin: 12/31/20 17:22 Dose: 6 mg Documented by: Sodium Chloride (Normal Saline) 1,000 mls @ 999 mls/hr IV BOLUS ONE Stop: 12/31/20 15:50 Last Admin: 12/31/20 14:59 Dose: 999 mls/hr Documented by: Remdesivir 200 mg/ Sodium (Chloride) 250 mls @ 250 mls/hr IV ONETIME ONE Stop: 12/31/20 17:52 Last Admin: 12/31/20 19:23 Dose: 250 mls/hr Documented by: Remdesivir 100 mg/ Sodium (Chloride) 100 mls @ 100 mls/hr IV Q24H [facility] Stop: 01/04/21 09:59 - Exam Quality Assessment: Supplemental Oxygen General: Alert, Oriented, Cooperative, No Acute Distress HEENT: EOMI, Mucous Membr. Moist/[place] Neck: Supple Lungs: Normal Respiratory Effort, Rhonchi Cardiovascular: Regular Rate, Regular Rhythm GI/Abdominal Exam: Soft, Non-Tender Extremities: Normal Inspection Neurological: No New Focal Deficit Psy/Mental Status: Alert, Normal Affect, Normal Mood - Patient Data Lab Results Last 24 hrs: Laboratory Results - last 24 hr 12/31/20 01/02/21 01/02/21 Range/Units 15:20 06:00 06:00 WBC 7.77 (4.0-11.0) K/uL RBC 4.37 (4.30-5.90) M/uL Hgb 12.6 (12.0-16.0) g/dL Hct 38.5 (36.0-46.0) % MCV 88.1 (80.0-98.0) fL MCH 28.8 (27.0-32.0) pg MCHC 32.7 (31.0-37.0) g/dL RDW Std Deviation 45.3 (28.0-62.0) fl RDW Coeff of Riddhi 14 (11.0-15.0) % Plt Count 353 (150-400) K/uL MPV 9.30 (7.40-12.00) fL Add Manual Diff YES Neutrophils % (Manual) 66 (48.0-80.0) % Lymphocytes % (Manual) 25 (16.0-40.0) % Monocytes % (Manual) 9 (0.0-15.0) % Nucleated RBC % 0.0 /100WBC Absolute Seg Neuts 5.1 (1.4-5.7) Lymphocytes # (Manual) 1.9 (0.6-2.4) Monocytes # (Manual) 0.7 (0.0-0.8) Nucleated RBCs # 0 K/uL Sodium 140 (136-145) mmol/L Potassium 5.0 (3.5-5.1) mmol/L Chloride 105 (98-107) mmol/L Carbon Dioxide 25.7 (21.0-32.0) mmol/L BUN 23 H (7.0-18.0) mg/dL Creatinine 0.9 (0.6-1.0) mg/dL Est Cr Clr Drug Dosing 60.20 mL/min Estimated GFR (MDRD) > 60.0 ml/min Glucose 116 H (74-106) mg/dL Calcium 8.9 (8.5-10.1) mg/dL Total Bilirubin 0.3 (0.2-1.0) mg/dL AST 31 (15-37) IU/L ALT 21 (14-63) IU/L Alkaline Phosphatase 69 (46-116) U/L Total Protein 6.7 (6.4-8.2) g/dL Albumin 2.5 L (3.4-5.0) g/dL Globulin 4.2 H (2.6-4.0) g/dL Albumin/Globulin Ratio 0.6 L (0.9-1.6) Influenza Type A RNA NEGATIVE (NEGATIVE) Influenza Type B RNA NEGATIVE (NEGATIVE) SARS-CoV-2 RNA (FREYA) POSITIVE H (NEGATIVE) Result Diagrams: 01/02/21 06:00 01/02/21 06:00 Sepsis Event Note - Evaluation Sepsis Screening Result: No Definite Risk - Focused Exam Vital Signs: Vital Signs Temp Pulse Resp BP Pulse Ox 01/02/21 07:45 97.3 F 62 16 115/70 94 L 01/02/21 04:00 96.8 F L 63 16 103/60 92 L 01/02/21 00:18 96.9 F 73 18 113/61 92 L - Problem List & Annotations (1) COVID-19 virus infection SNOMED Code(s): 401871904 Code(s): U07.1 - COVID-19 Status: Acute Current Visit: Yes (2) Hypoxia SNOMED Code(s): 563298506 Code(s): R09.02 - HYPOXEMIA Status: Acute Current Visit: Yes - Problem List Review Problem List Initiated/Reviewed/Updated: Yes - My Orders Last 24 Hours: My Active Orders 01/03/21 05:11 CBC WITH AUTO DIFF [HEME] AM - Plan Plan:: Assessment: 1. Acute hypoxic respiratory failure secondary to Covid:improving 2. Hyponatremia/mild:resolved 3. Past medical history: Hypothyroidism, hyperlipidemia, anxiety Plan DVT prophylaxis: Heparin 5000 every 8 Telemetry Heart healthy diet 1. Acute hypoxic respiratory failure secondary to Covid: improving Maintain oxygen saturation greater than 88%. Currently requiring 2 L. Rest of vitals otherwise unremarkable. May consider CT scan if worsening dyspnea/increasing oxygen requirements. Wells score: 3.0 Continue Remdesivr, Dexamethasone, Combivent and supplemental o2 Encourage Spirometry and proning as tolerated Euvolemic at this time; encourage PO intake Continue to monitor Continue Levofloxacin for concerns for secondary infection; 2. Hyponatremia:resolved 3. PMH: Continue Metoprolol Continue Levothyroxine
[2021-01-02] MEDS: REMDESIVIR 100 MG in Sodium Chloride 0.9% 100 ML IV SCH (18:53)
[2021-01-02] MEDS: Levofloxacin/Dextrose 5%-Water 750 MG in Premix Bag 1 BAG IV SCH (20:20)
[2021-01-02] MEDS: Metoprolol Succinate 25 MG Tab.ER PO SCH (20:21)
[2021-01-02] MEDS: LORazepam 0.5 MG Tab PO PRN (22:23)
[2021-01-03] MEDS: Heparin Sodium 5,000 Units/ML Vial SUBCUT SCH ×3 (03:15→19:55)
[2021-01-03 06:23] LABS: BLOOD UREA NITROGEN,BUN 23 mg/dL (7.0-18.0); CARBON DIOXIDE,CO2 25.1 mmol/L (21.0-32.0); CHLORIDE,CL 105 mmol/L (98-107); GLUCOSE RANDOM 98 mg/dL (74-106); SODIUM,NA 140 mmol/L (136-145)
[2021-01-03] MEDS: Levothyroxine 100 MCG Tab PO SCH (06:57)
[2021-01-03] MEDS: Cholecalciferol (Vitamin D3) 25 MCG Tab PO SCH (09:25)
[2021-01-03] MEDS: Aspirin 81 MG Tab.EC PO SCH (09:26)
[2021-01-03] MEDS: Dexamethasone 4 MG Tab PO SCH (09:26)
[2021-01-03] MEDS: Zinc [Zinc] 50 MG Tablet PO SCH (11:20)
--- NOTE | 2021-01-03 14:22 | PCM.PN ---
- General Info Date of Service: 01/03/21 - Review of Systems Systems Review Comment:: feeling better, shortness of breath improved - Patient Data Vitals - Most Recent: Last Vital Signs Temp 36.3 C 01/03/21 12:00 Pulse 62 01/03/21 12:00 Resp 17 01/03/21 12:00 BP 110/66 01/03/21 12:00 Pulse Ox 92 L 01/03/21 12:00 Weight - Most Recent: 82.146 kg I&O - Last 24 Hours: Intake & Output 01/02/21 01/03/21 01/03/21 22:59 06:59 14:59 Intake Total 860 800 Output Total 1095 1000 Balance -235 -200 Lab Results Last 24 Hours: Laboratory Results - last 24 hr 01/03/21 01/03/21 Range/Units 05:40 05:40 WBC 7.38 (4.0-11.0) K/uL RBC 4.24 L (4.30-5.90) M/uL Hgb 12.2 (12.0-16.0) g/dL Hct 37.3 (36.0-46.0) % MCV 88.0 (80.0-98.0) fL MCH 28.8 (27.0-32.0) pg MCHC 32.7 (31.0-37.0) g/dL RDW Std Deviation 45.5 (28.0-62.0) fl RDW Coeff of Riddhi 14 (11.0-15.0) % Plt Count 366 (150-400) K/uL MPV 9.00 (7.40-12.00) fL Add Manual Diff YES Neutrophils % (Manual) 73 (48.0-80.0) % Lymphocytes % (Manual) 17 (16.0-40.0) % Monocytes % (Manual) 9 (0.0-15.0) % Eosinophils % (Manual) 1 (0.0-7.0) % Nucleated RBC % 0.0 /100WBC Absolute Seg Neuts 5.4 (1.4-5.7) Lymphocytes # (Manual) 1.3 (0.6-2.4) Monocytes # (Manual) 0.7 (0.0-0.8) Eosinophils # (Manual) 0.1 (0.0-0.7) Nucleated RBCs # 0 K/uL Sodium 140 (136-145) mmol/L Potassium 4.0 (3.5-5.1) mmol/L Chloride 105 (98-107) mmol/L Carbon Dioxide 25.1 (21.0-32.0) mmol/L BUN 23 H (7.0-18.0) mg/dL Creatinine 0.9 (0.6-1.0) mg/dL Est Cr Clr Drug Dosing 60.20 mL/min Estimated GFR (MDRD) > 60.0 ml/min Glucose 98 (74-106) mg/dL Calcium 8.3 L (8.5-10.1) mg/dL Total Bilirubin 0.2 (0.2-1.0) mg/dL AST 27 (15-37) IU/L ALT 22 (14-63) IU/L Alkaline Phosphatase 67 (46-116) U/L Total Protein 6.6 (6.4-8.2) g/dL Albumin 2.5 L (3.4-5.0) g/dL Globulin 4.1 H (2.6-4.0) g/dL Albumin/Globulin Ratio 0.6 L (0.9-1.6) Med Orders - Current: Current Medications Acetaminophen (Acetaminophen 325 Mg Tab) 650 mg PO Q4H PRN PRN Reason: Pain (Mild 1-3)/fever Albuterol/Ipratropium (Albuterol/Ipratropium 4 Gm Inhalation [place]) 0 gm INH Q4H PRN PRN Reason: Dyspnea Aspirin (Aspirin 81 Mg Tab.Ec) 81 mg PO DAILY [facility] Last Admin: 01/03/21 09:26 Dose: 81 mg Documented by: Cholecalciferol (Cholecalciferol (Vitamin D3) 25 Mcg Tab) 50 mcg PO DAILY [facility] Last Admin: 01/03/21 09:25 Dose: 50 mcg Documented by: Dexamethasone (Dexamethasone 4 Mg Tab) 6 mg PO DAILY [facility] Last Admin: 01/03/21 09:26 Dose: 6 mg Documented by: Guaifenesin (Guaifenesin 100 Mg/5 Ml Soln 5 Ml Ud Cup) 200 mg PO Q4H PRN PRN Reason: Cough Last Admin: 01/01/21 04:18 Dose: 200 mg Documented by: Heparin Sodium (Porcine) (Heparin Sodium 5,000 Units/Ml Vial) 5,000 units SUBCUT Q8H [facility] Last Admin: 01/03/21 12:03 Dose: 5,000 units Documented by: Levofloxacin/Dextrose 750 mg/ (Premix) 150 mls @ 100 mls/hr IV Q24H [facility] Last Admin: 01/02/21 20:20 Dose: 100 mls/hr Documented by: Remdesivir 100 mg/ Sodium (Chloride) 100 mls @ 100 mls/hr IV Q24H [facility] Stop: 01/04/21 19:59 Last Admin: 01/02/21 18:53 Dose: 100 mls/hr Documented by: Levothyroxine Sodium (Levothyroxine 100 Mcg Tab) 100 mcg PO ACBREAKFAST [facility] Last Admin: 01/03/21 06:57 Dose: 100 mcg Documented by: Lorazepam (Lorazepam 0.5 Mg Tab) 1 mg PO BEDTIME PRN PRN Reason: Anxiety Last Admin: 01/02/21 22:23 Dose: 0.5 mg Documented by: Metoprolol Succinate (Metoprolol Succinate 25 Mg Tab.Er) 25 mg PO BEDTIME [facility] Last Admin: 01/02/21 20:21 Dose: 25 mg Documented by: Ondansetron HCl (Ondansetron 4 Mg Tab.Dis) 4 mg PO Q4H PRN PRN Reason: nausea, able to take PO Zinc [Zinc] 50 Mg (Tablet) 1 each PO DAILY [facility] Last Admin: 01/03/21 11:20 Dose: Not Given Documented by: Discontinued Medications Dexamethasone (Dexamethasone 10 Mg/Ml Sdv) 6 mg IVPUSH ONETIME ONE Stop: 12/31/20 17:01 Last Admin: 12/31/20 17:22 Dose: 6 mg Documented by: Sodium Chloride (Normal Saline) 1,000 mls @ 999 mls/hr IV BOLUS ONE Stop: 12/31/20 15:50 Last Admin: 12/31/20 14:59 Dose: 999 mls/hr Documented by: Remdesivir 200 mg/ Sodium (Chloride) 250 mls @ 250 mls/hr IV ONETIME ONE Stop: 12/31/20 17:52 Last Admin: 12/31/20 19:23 Dose: 250 mls/hr Documented by: Remdesivir 100 mg/ Sodium (Chloride) 100 mls @ 100 mls/hr IV Q24H [facility] Stop: 01/04/21 09:59 Last Admin: 01/02/21 18:50 Dose: 100 mls/hr Documented by: - Exam General: Alert, Oriented Lungs: Clear to Auscultation, Normal Respiratory Effort Cardiovascular: Regular Rate, Regular Rhythm GI/Abdominal Exam: Soft, Non-Tender, No Distention Extremities: Non-Tender, No Pedal Edema Skin: Warm, Dry, Intact Neurological: No New Focal Deficit - Patient Data Lab Results Last 24 hrs: Laboratory Results - last 24 hr 01/03/21 01/03/21 Range/Units 05:40 05:40 WBC 7.38 (4.0-11.0) K/uL RBC 4.24 L (4.30-5.90) M/uL Hgb 12.2 (12.0-16.0) g/dL Hct 37.3 (36.0-46.0) % MCV 88.0 (80.0-98.0) fL MCH 28.8 (27.0-32.0) pg MCHC 32.7 (31.0-37.0) g/dL RDW Std Deviation 45.5 (28.0-62.0) fl RDW Coeff of Riddhi 14 (11.0-15.0) % Plt Count 366 (150-400) K/uL MPV 9.00 (7.40-12.00) fL Add Manual Diff YES Neutrophils % (Manual) 73 (48.0-80.0) % Lymphocytes % (Manual) 17 (16.0-40.0) % Monocytes % (Manual) 9 (0.0-15.0) % Eosinophils % (Manual) 1 (0.0-7.0) % Nucleated RBC % 0.0 /100WBC Absolute Seg Neuts 5.4 (1.4-5.7) Lymphocytes # (Manual) 1.3 (0.6-2.4) Monocytes # (Manual) 0.7 (0.0-0.8) Eosinophils # (Manual) 0.1 (0.0-0.7) Nucleated RBCs # 0 K/uL Sodium 140 (136-145) mmol/L Potassium 4.0 (3.5-5.1) mmol/L Chloride 105 (98-107) mmol/L Carbon Dioxide 25.1 (21.0-32.0) mmol/L BUN 23 H (7.0-18.0) mg/dL Creatinine 0.9 (0.6-1.0) mg/dL Est Cr Clr Drug Dosing 60.20 mL/min Estimated GFR (MDRD) > 60.0 ml/min Glucose 98 (74-106) mg/dL Calcium 8.3 L (8.5-10.1) mg/dL Total Bilirubin 0.2 (0.2-1.0) mg/dL AST 27 (15-37) IU/L ALT 22 (14-63) IU/L Alkaline Phosphatase 67 (46-116) U/L Total Protein 6.6 (6.4-8.2) g/dL Albumin 2.5 L (3.4-5.0) g/dL Globulin 4.1 H (2.6-4.0) g/dL Albumin/Globulin Ratio 0.6 L (0.9-1.6) Result Diagrams: 01/03/21 05:40 01/03/21 05:40 Sepsis Event Note - Evaluation Sepsis Screening Result: No Definite Risk - Focused Exam Vital Signs: Vital Signs Temp Pulse Resp BP BP Pulse Ox 01/03/21 12:00 36.3 C 62 17 110/66 92 L 01/03/21 08:00 36.3 C 65 18 112/64 93 L 01/03/21 03:14 36.1 C 62 18 110/61 92 L - Problem List Review Problem List Initiated/Reviewed/Updated: Yes - My Orders Last 24 Hours: My Active Orders 01/03/21 14:16 Communication Order [RC] PER UNIT ROUTINE 01/04/21 05:11 CBC WITH AUTO DIFF [HEME] AM - Plan Plan:: Assessment: 1. Acute hypoxic respiratory failure secondary to Covid:improving 2. Hyponatremia/mild:resolved 3. Past medical history: Hypothyroidism, hyperlipidemia, anxiety Plan DVT prophylaxis: Heparin 5000 every 8 Telemetry Heart healthy diet 1. Acute hypoxic respiratory failure secondary to Covid: improving Maintain oxygen saturation greater than 88%. Currently requiring 1 L via NC. Continue Remdesivr, Dexamethasone, Combivent and supplemental o2 Encourage Spirometry and proning as tolerated Euvolemic at this time; encourage PO intake Continue to monitor Continue Levofloxacin for concerns for secondary infection; 2. Hyponatremia:resolved 3. PMH: Continue Metoprolol Continue Levothyroxine Dispo: likely home tomorrow.
[2021-01-03] MEDS: REMDESIVIR 100 MG in Sodium Chloride 0.9% 100 ML IV SCH (18:27)
[2021-01-03] MEDS: Levofloxacin/Dextrose 5%-Water 750 MG in Premix Bag 1 BAG IV SCH (19:56)
[2021-01-03] MEDS: Metoprolol Succinate 25 MG Tab.ER PO SCH (20:01)
[2021-01-03] MEDS: LORazepam 0.5 MG Tab PO PRN (22:10)
[2021-01-04] MEDS: Heparin Sodium 5,000 Units/ML Vial SUBCUT SCH ×2 (04:05→12:28)
[2021-01-04 06:50] LABS: BLOOD UREA NITROGEN,BUN 21 mg/dL (7.0-18.0); CARBON DIOXIDE,CO2 25.2 mmol/L (21.0-32.0); CHLORIDE,CL 106 mmol/L (98-107); GLUCOSE RANDOM 93 mg/dL (74-106); SODIUM,NA 140 mmol/L (136-145)
[2021-01-04] MEDS: Levothyroxine 100 MCG Tab PO SCH (07:41)
[2021-01-04] MEDS: Dexamethasone 4 MG Tab PO SCH (08:08)
[2021-01-04] MEDS: Aspirin 81 MG Tab.EC PO SCH (08:08)
[2021-01-04] MEDS: Cholecalciferol (Vitamin D3) 25 MCG Tab PO SCH (08:09)
[2021-01-04] MEDS: Zinc [Zinc] 50 MG Tablet PO SCH (08:10)
--- NOTE | 2021-01-04 12:35 | PCM.DCSUM1 ---
Discharge Summary - Hospital Course Free Text/Narrative:: 75-year-old female with significant past medical history of h ypothyroidism,Irregular heart rate with premature atrial contractions on metoprolol, anxiety: Presenting on 12-31 with worsening shortness of breath, fatigue, exertional dyspnea x6 days. Patient endorses symptoms began 6 days prior and had gone to urgent care here at [facility] on December 28 complaining of fatigue and nonproductive cough. Chest x-ray at the time however did not show any acute findings and patient was discharged in stable condition. patient however returned back on December 31; complaining of worsening fatigue w. fever, T-max of 101 and since oxygen saturation was noted to be at 88% patient was immediately sent to the ER. ED course: Covid positive Chest x-ray: New mild pulmonary venous congestion with some new patchy infiltrates in the right mid to lower lung lung field concerning for atelectasis or infection no pneumothorax or effusion noted. EKG: Sinus rhythm Patient was given initial dose of dexamethasone 6 mg, remdesivir 200 and given a 1 L NS bolus. Oxygen requirement had gone up slightly however the rest of her vitals were unremarkable; O2 saturation 90% on 4 L. Hospital course: Patient admitted to the general medical floor due to acute hypoxic respiratory failure in light of her Covid diagnosis: patient was started on remdesivir, dexamethasone and started on levofloxacin with concerns about secondary i nfection in light of her increasing O2 requirements and duration of symptoms. Patient throughout stay had continually weaned down on oxygen requirement ultimately arriving at room air requirements. Patient otherwise was eating drinking stooling and voiding without issues. Home medication was continued including metoprolol and levothyroxine. Patient had completed a course of remdesivir and had been on dexamethasone throughout her stay vitals had been stable including her O2 requirements on day of discharge ; labs were fairly unremarkable throughout her stay.. Patient was discharged in stable condition with 1 additional day of levofloxacin to complete course for possible superimposed pneumonia. Patient discharged in stable condition. Follow-up: PCP. - Discharge Data Discharge Date: 01/04/21 Discharge Disposition: Home, Self-Care 01 Condition: Good - Referral to Home Health Primary Care Physician: Vivian Cervantes NP - Discharge Diagnosis/Problem(s) (1) COVID-19 virus infection SNOMED Code(s): 375805414 ICD Code: U07.1 - COVID-19 Status: Acute (2) Hypoxia SNOMED Code(s): 959719067 ICD Code: R09.02 - HYPOXEMIA Status: Acute - Patient Instructions Diet: Heart Healthy Diet Notify Provider of: Fever, Nausea and/or Vomiting Other/Special Instructions: If your breathing becomes labored or shortness of breath becomes concnerning notify your provider or proceed to the ED immediately. You have 1 more day remaining for your antibiotic regimen ; take your last pill tomorrow. Qurantine at home per CDC guidelines due to testing positive for COVID pneumonia - Discharge Plan *PRESCRIPTION DRUG MONITORING PROGRAM REVIEWED*: No *COPY OF PRESCRIPTION DRUG MONITORING REPORT IN PATIENT MOR: No Prescriptions/Med Rec: Levofloxacin 750 mg PO ONETIME 1 Days #1 tablet Home Medications: Home Meds Aspirin [[place] Aspirin EC] 81 mg PO DAILY 12/11/17 [History] LORazepam 0.5 - 1 tab PO ASDIRECTED PRN 12/11/17 [History] Metoprolol Succinate 25 mg PO BEDTIME 12/11/17 [History] Cholecalciferol (Vitamin D3) [Vitamin D3] 2,000 unit PO DAILY 12/31/20 [History] Levothyroxine [Synthroid] 100 mcg PO ACBREAKFAST 12/31/20 [History] Lysine 1,000 mg PO DAILY 12/31/20 [History] Magnesium 250 mg PO DAILY 12/31/20 [History] Zinc 50 mg PO DAILY 12/31/20 [History] Acetaminophen [Tylenol] 650 mg PO Q4H PRN tablet 01/04/21 [Rx] Albuterol/Ipratropium [Combivent Respimat] 1 puff INH Q4H PRN 14 Days #1 inhaler 01/04/21 [Rx] Levofloxacin 750 mg PO ONETIME 1 Days #1 tablet 01/04/21 [Rx] Oxygen Therapy Mode: Room Air Patient Handouts: COVID-19: What Your Test Results Mean - CDC, COVID-19 Frequently Asked Questions, COVID-19, What You Should Know About COVID-19 to Protect Yourself and Others - CDC, Levofloxacin tablets, COVID-19: Quarantine vs. Isolation - CDC Referrals: Tracie Cervantes NP [Primary Care Provider] - 01/15/21 3:45 pm - Discharge Summary/Plan Comment DC Time >30 min.: No - Patient Data Vitals - Most Recent: Last Vital Signs Temp 98.1 F 01/04/21 08:00 Pulse 65 01/04/21 08:00 Resp 16 01/04/21 08:00 BP 97/68 01/04/21 08:00 Pulse Ox 94 L 01/04/21 08:00 Weight - Most Recent: 82.146 kg I&O - Last 24 hours: Intake & Output 01/03/21 01/04/21 01/04/21 22:59 06:59 14:59 Intake Total 1050 800 Output Total 1100 1600 Balance -50 -800 Lab Results - Last 24 hrs: Laboratory Results - last 24 hr 01/04/21 01/04/21 Range/Units 06:00 06:00 WBC 6.59 (4.0-11.0) K/uL RBC 4.23 L (4.30-5.90) M/uL Hgb 12.0 (12.0-16.0) g/dL Hct 36.9 (36.0-46.0) % MCV 87.2 (80.0-98.0) fL MCH 28.4 (27.0-32.0) pg MCHC 32.5 (31.0-37.0) g/dL RDW Std Deviation 44.8 (28.0-62.0) fl RDW Coeff of Riddhi 14 (11.0-15.0) % Plt Count 365 (150-400) K/uL MPV 9.10 (7.40-12.00) fL Add Manual Diff YES Neutrophils % (Manual) 55 (48.0-80.0) % Lymphocytes % (Manual) 37 (16.0-40.0) % Monocytes % (Manual) 7 (0.0-15.0) % Basophils % (Manual) 1 (0.0-1.5) % Nucleated RBC % 0.0 /100WBC Absolute Seg Neuts 3.6 (1.4-5.7) Lymphocytes # (Manual) 2.4 (0.6-2.4) Monocytes # (Manual) 0.5 (0.0-0.8) Basophils # (Manual) 0.1 (0.0-0.1) Nucleated RBCs # 0 K/uL Sodium 140 (136-145) mmol/L Potassium 4.0 (3.5-5.1) mmol/L Chloride 106 (98-107) mmol/L Carbon Dioxide 25.2 (21.0-32.0) mmol/L BUN 21 H (7.0-18.0) mg/dL Creatinine 0.8 (0.6-1.0) mg/dL Est Cr Clr Drug Dosing 67.73 mL/min Estimated GFR (MDRD) > 60.0 ml/min Glucose 93 (74-106) mg/dL Calcium 8.4 L (8.5-10.1) mg/dL Total Bilirubin 0.3 (0.2-1.0) mg/dL AST 33 (15-37) IU/L ALT 28 (14-63) IU/L Alkaline Phosphatase 62 (46-116) U/L Total Protein 6.3 L (6.4-8.2) g/dL Albumin 2.5 L (3.4-5.0) g/dL Globulin 3.8 (2.6-4.0) g/dL Albumin/Globulin Ratio 0.7 L (0.9-1.6) Med Orders - Current: Current Medications Acetaminophen (Acetaminophen 325 Mg Tab) 650 mg PO Q4H PRN PRN Reason: Pain (Mild 1-3)/fever Albuterol/Ipratropium (Albuterol/Ipratropium 4 Gm Inhalation [place]) 0 gm INH Q4H PRN PRN Reason: Dyspnea Aspirin (Aspirin 81 Mg Tab.Ec) 81 mg PO DAILY [facility] Last Admin: 01/04/21 08:08 Dose: 81 mg Documented by: Cholecalciferol (Cholecalciferol (Vitamin D3) 25 Mcg Tab) 50 mcg PO DAILY [facility] Last Admin: 01/04/21 08:09 Dose: 50 mcg Documented by: Dexamethasone (Dexamethasone 4 Mg Tab) 6 mg PO DAILY [facility] Last Admin: 01/04/21 08:08 Dose: 6 mg Documented by: Guaifenesin (Guaifenesin 100 Mg/5 Ml Soln 5 Ml Ud Cup) 200 mg PO Q4H PRN PRN Reason: Cough Last Admin: 01/01/21 04:18 Dose: 200 mg Documented by: Heparin Sodium (Porcine) (Heparin Sodium 5,000 Units/Ml Vial) 5,000 units SUBCUT Q8H [facility] Last Admin: 01/04/21 12:28 Dose: 5,000 units Documented by: Levofloxacin/Dextrose 750 mg/ (Premix) 150 mls @ 100 mls/hr IV Q24H [facility] Last Admin: 01/03/21 19:56 Dose: 100 mls/hr Documented by: Remdesivir 100 mg/ Sodium (Chloride) 100 mls @ 100 mls/hr IV Q24H [facility] Stop: 01/04/21 19:59 Last Admin: 01/03/21 18:27 Dose: 100 mls/hr Documented by: Levothyroxine Sodium (Levothyroxine 100 Mcg Tab) 100 mcg PO ACBREAKFAST [facility] Last Admin: 01/04/21 07:41 Dose: 100 mcg Documented by: Lorazepam (Lorazepam 0.5 Mg Tab) 1 mg PO BEDTIME PRN PRN Reason: Anxiety Last Admin: 01/03/21 22:10 Dose: 0.5 mg Documented by: Metoprolol Succinate (Metoprolol Succinate 25 Mg Tab.Er) 25 mg PO BEDTIME [facility] Last Admin: 01/03/21 20:01 Dose: 25 mg Documented by: Ondansetron HCl (Ondansetron 4 Mg Tab.Dis) 4 mg PO Q4H PRN PRN Reason: nausea, able to take PO Zinc [Zinc] 50 Mg (Tablet) 1 each PO DAILY [facility] Last Admin: 01/04/21 08:10 Dose: Not Given Documented by: Discontinued Medications Dexamethasone (Dexamethasone 10 Mg/Ml Sdv) 6 mg IVPUSH ONETIME ONE Stop: 12/31/20 17:01 Last Admin: 12/31/20 17:22 Dose: 6 mg Documented by: Sodium Chloride (Normal Saline) 1,000 mls @ 999 mls/hr IV BOLUS ONE Stop: 12/31/20 15:50 Last Admin: 12/31/20 14:59 Dose: 999 mls/hr Documented by: Remdesivir 200 mg/ Sodium (Chloride) 250 mls @ 250 mls/hr IV ONETIME ONE Stop: 12/31/20 17:52 Last Admin: 12/31/20 19:23 Dose: 250 mls/hr Documented by: Remdesivir 100 mg/ Sodium (Chloride) 100 mls @ 100 mls/hr IV Q24H [facility] Stop: 01/04/21 09:59 Last Admin: 01/02/21 18:50 Dose: 100 mls/hr Documented by:
== END 2021-01-04 13:45 | disposition home or self-care (01) | DRG 177 ==
LOC: MW.ED 14:19 → MW.MS 17:01
PROVIDERS: ADMIT Student in an Organized Health Care Education/Training Program; ATTEND Student in an Organized Health Care Education/Training Program
PROC: XW033E5 Introduction of Remdesivir Anti-infective into Peripheral Vein, Percutaneous Approach, New Technology Group 5 (ICD-10-PCS; principal; 2020-12-31)
DX: U07.1 COVID-19 (principal); R09.02 Hypoxemia; J96.01 Acute respiratory failure with hypoxia; E87.1 Hypo-osmolality and hyponatremia; E03.9 Hypothyroidism, unspecified; I10 Essential (primary) hypertension; E78.5 Hyperlipidemia, unspecified; F41.9 Anxiety disorder, unspecified; Z79.82 Long term (current) use of aspirin; Z79.890 Hormone replacement therapy; Z79.899 Other long term (current) drug therapy; Z90.89 Acquired absence of other organs; Z90.710 Acquired absence of both cervix and uterus; Z98.51 Tubal ligation status
CPT/HCPCS: 0240U; 36415; 71045; 80053; 81001; 82248; 83690; 84484; 85025; 93005; 99285; 99284; A9270-GY; J1100; J1644; J1956; J7030; J7050; J8540

== ENCOUNTER 2022-06-15 16:45 | Emergency (ER) | payer MEDICARE, BC ==
[2022-06-15] MEDS ORDERED: Sodium Chloride 0.9% 1,000 ML IV ONE (18:29)
[2022-06-15 19:34] LABS: CARBON DIOXIDE,CO2 27.2 mmol/L (21.0-32.0); POTASSIUM,K 5.1 mmol/L (3.5-5.1)
[2022-06-15] MEDS ORDERED: Nitrofurantoin Monohydrate/Macrocrystalline 100 MG Cap PO ONE (20:03)
== END 2022-06-15 20:41 | disposition home or self-care (01) ==
LOC: MW.ED 16:45
DX: N30.00 Acute cystitis without hematuria (principal); I10 Essential (primary) hypertension; Z79.82 Long term (current) use of aspirin; Z79.899 Other long term (current) drug therapy; Z90.710 Acquired absence of both cervix and uterus
CPT/HCPCS: 36415; 70450; 71045; 80053; 81001; 84484; 85025; 87086; 93005; 96360; 99284; A9270; J7030